=== PATIENT | female | born 1965 | race Caucasian/White ===

== ENCOUNTER → 2020-09-20 08:52 | Outpatient (BNVA) | payer OTHER, SELFPAY | PROVIDERS: PCP Nurse Practitioner Family; Referring Provider Nurse Practitioner Family; Visit Provider Physician Assistant | DX: Z76.89 Persons encountering health services in other specified circumstances (principal) ==

== ENCOUNTER 2021-06-28 13:53 | Outpatient (REF) | payer OTHER, SELFPAY | END 2021-06-28 13:54 | disposition home or self-care (01) | LOC: HO.LNP 13:53 | PROVIDERS: Visit Provider Internal Medicine | DX: Z20.822 Contact with and (suspected) exposure to COVID-19 (principal); J06.9 Acute upper respiratory infection, unspecified | CPT/HCPCS: U0003; U0005 ==

== ENCOUNTER 2023-08-23 11:11 | Outpatient (AMB) | payer OTHER, SELFPAY ==
--- NOTE | 2023-08-23 11:15 | AM.OFFWIN_ITS ---
Intake Vital Signs 08/23/23 11:24 Weight 99 lb BP 130/68 Blood Pressure Location Lt brachial Position Sitting Pulse 86 Pulse Source Pulse Oximeter Temp 97.6 F Temp Source Temporal Artery Scan Pulse Oximetry (%) 99 Oxygen Delivery Method Room Air Intake Visit Reasons: EP, sore throat, left leg pain (masked) Intake Note: pt is here for c/o sore throat and left leg pain over a week Patient Tobacco Use Status: Never used Tobacco Allergies cephalexin [From KEFLEX] Allergy (Severe, Verified 08/23/23 11:15) SWELLING Sulfa (Sulfonamide Antibiotics) Allergy (Mild, Verified 08/23/23 11:15) ANGIOEDEMA Do you need a note to return to daycare/school/sports/work: Yes HPI HPI Comments History of Present Illness Details This is a 58-year-old female with no stated past medical history who is a daily tobacco user presenting for evaluation of a sore throat and left leg pain. Patient states that she has had a sore throat mostly on the right side for the past 2 months. Patient states that she has difficulty swallowing however has been able to eat and drink fluids daily. Patient has been taking Aleve [id number] with minimal relief of her discomfort. She denies having any fevers, chills, ear pain, cough or shortness of breath. Patient also states that she no longer has a vehicle and therefore has been walking everywhere . Patient states that she tripped on a sidewalk approximately 1 week ago, did not fall to the ground however strained her left inguinal region. Patient describes her pain as an aching sensation that radiates to her left thigh. [facility] Medical History Anxiety Surgical History (Updated 09/20/20 @ 10:06 by Vy Mccarthy PA-C) Hx of appendectomy Family History (Updated 09/20/20 @ 10:09 by Vy Mccarthy PA-C) Father No problems noted. Mother No problems noted. 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 Review of Systems Const All systems reviewed & are unremarkable except as noted in HPI and below Denies chills, Denies fatigue, Denies fever(s), Denies night sweats, Denies weakness and Reports weight loss (15 lb weight loss over 3 months -- attributes to walking everywhere ) ENT Denies otalgia, Denies sinus pressure, Reports sore throat, Denies throat swelling and Denies tongue swelling Card Denies dyspnea Resp Denies cough and Denies dyspnea Musc Reports no additional complaints and Reports other (left inguinal pain radiating to left thigh) Neuro Denies weakness Psych Reports no additional complaints Endo Denies fatigue Aller/Immun Denies throat swelling and Denies tongue swelling Physical Exam Const General: cooperative Nutritional Appearance: underweight Orientation/consciousness: patient oriented x3 Limitations: no limitations HEENT Head: Yes normal to inspection Ears: hearing grossly normal bilaterally, external ears normal, TM's normal bilaterally and EAC's normal General nose exam: Normal external nose present Face and sinus: Yes normal facial exam and No sinus tenderness Mouth: Normal oral and palatal mucosa present, oropharynx normal and moist mucous membranes Throat: Yes posterior oropharynx normal Eyes Eyelids: Yes eyelids normal Conjunctivae: conjunctivae normal Sclerae: sclerae normal Neck Lymphatic: lymphadenopathy (right submandibular adenopathy) Skin General skin exam: no rashes or lesions noted Neuro General: patient oriented x3 Gait exam (Neuro): Ataxic gait present (favoring left leg) Extrem General: Yes normal to inspection Left lower extremity: normal to inspection, full ROM and hip/thigh Details: tenderness (left inguinal region; pain to direct palpation, no pain with palpation left thigh) Results Reviewed Results Reviewed: negative rapid strep Assessment & Plan Assessment & Plan (1) Pharyngitis: Code(s): J02.9 - Acute pharyngitis, unspecified Plan: Naprosyn BID x 7- 10 days; patient to follow-up with PCP if no relief for possible referral to ENT given her tobacco use coupled with her right cervical adenopathy and weight loss. Concerns are discussed with the patient. (2) Strain of left inguinal muscle: Code(s): S39.013A - Strain of muscle, fascia and tendon of pelvis, initial encounter Plan: Naprosyn BID x 7-10 days. Medications: New naproxen (Naprosyn) 500 mg PO BID 20 tabs 0RF Coding Level of Care Code Est Pt Level 4 (96647) Diagnoses Pharyngitis J02.9 Strain of left inguinal muscle S39.013A Time Spent (min) 25
[2023-08-23 11:24] VITALS: BP 130/68; PULSE 86; TEMP 36.4; O2SAT 99
== END 2023-08-23 11:55 | disposition home or self-care (01) ==
PROVIDERS: PCP Nurse Practitioner Family; Visit Provider Physician Assistant
DX: J02.9 Acute pharyngitis, unspecified (principal); S39.013A Strain of muscle, fascia and tendon of pelvis, initial encounter
CPT/HCPCS: 87880; 99214

== ENCOUNTER 2023-10-02 13:41 | Outpatient (REF) | payer MEDICAID, SELFPAY ==
[2023-10-07 17:27] LABS: C. Trachomatis RNA TMA, Throat NOT DETECTED; N. gonorrhoeae RNA TMA, Throat DETECTED
== END 2023-10-02 13:42 | disposition home or self-care (01) ==
LOC: HO.HHCLNP 13:41
PROVIDERS: Visit Provider Emergency Medicine
DX: J02.8 Acute pharyngitis due to other specified organisms (principal)
CPT/HCPCS: 87070; 87491; 87591

== ENCOUNTER 2023-10-09 09:07 | Outpatient (REF) | payer MEDICAID, SELFPAY ==
--- NOTE | ~2023-10-09 | XR_ITS ---
EXAMINATION: XR CHEST CLINICAL INFORMATION: Cough COMPARISON: Chest radiograph from 02/24/2014 TECHNIQUE: 2 views of the chest were obtained. FINDINGS: Hyperinflation of the bilateral lung buchanan. No pneumothorax. Trachea is midline. Cardiac mediastinal silhouette is not enlarged. No large pleural effusion. Degenerative changes of the thoracic spine. Soft tissues are unremarkable. XR/XR chest 2V IMPRESSION: No acute cardiopulmonary process.
== END 2023-10-09 09:08 | disposition home or self-care (01) ==
LOC: HO.HHCX 09:07
PROVIDERS: Visit Provider Emergency Medicine
DX: R05.3 Chronic cough (principal)
CPT/HCPCS: 71046

== ENCOUNTER 2023-10-09 09:36 | Outpatient (REF) | payer MEDICAID, SELFPAY ==
[2023-10-09 11:41] LABS: Estimated Average Glucose 120 mg/dL; Hemoglobin A1c % 5.8 % (<6.0)
[2023-10-09 12:05] LABS: Alanine Aminotransferase 33 U/L (0-31); Alkaline Phosphatase 71 U/L (39-117); Anion Gap 14 (12-20); Aspartate Amino Transferase 28 U/L (5-31); Bilirubin Total 0.3 mg/dL (0.0-1.0); Blood Urea Nitrogen 17 mg/dL (9-16); Calcium 9.4 mg/dL (8.4-10.2); Carbon Dioxide 26 mmol/L (22-29); Chloride 106 mmol/L (96-108); Estimated Glomerular Filt Rate > 60; Glucose Random 85 mg/dL (60-115); Potassium 4.1 mmol/L (3.3-5.1); Sodium 142 mmol/L (135-145); Total Protein 6.8 g/dL (6.5-8.0)
[2023-10-09 12:07] LABS: HBc Num1 0.12 S/CO (0.00-0.79); HBsAGNum1 0.32 S/CO (0.00-0.99); HIV AB/AG Nonreactive (Nonreactive); HIV Num 1 0.04 S/CO (0.00-0.99); Hepatitis B Core Antibody Nonreactive (Nonreactive); Hepatitis B Surface Antigen Negative (Negative); ~Hepatitis C Antibody Nonreactive (Nonreactive)
[2023-10-09 12:11] LABS: TSH reflex Free T4 1.27 uIU/mL (0.32-4.0); Vitamin B12 377 pg/mL (200-900)
[2023-10-11 08:44] LABS: RPR Rapid Plasma Reagin NON-REACTIVE (NON-REACTIVE)
== END 2023-10-09 09:37 | disposition home or self-care (01) ==
LOC: HO.HHCL 09:36
PROVIDERS: Visit Provider Emergency Medicine
DX: Z11.4 Encounter for screening for human immunodeficiency virus [HIV] (principal); R20.2 Paresthesia of skin; A54.5 Gonococcal pharyngitis; R73.03 Prediabetes
CPT/HCPCS: 36415; 71046; 80053; 82607; 83036; 84443; 86592; 86704; 86803; 87340; 87389

== ENCOUNTER 2023-10-13 18:25 | Emergency (ER) | payer MEDICAID, SELFPAY ==
--- NOTE | ~2023-10-13 | XR_ITS ---
EXAMINATION: XR CHEST CLINICAL INFORMATION: Rule out pneumonia. COMPARISON: 10/09/2023 TECHNIQUE: 2 views of the chest were obtained. FINDINGS: Normal symmetric lung volumes. No parenchymal consolidation. No pleural effusion. No pneumothorax. Cardiomediastinal silhouette and pulmonary vascularity are within normal limits. No acute osseous abnormalities. XR/XR chest 2V IMPRESSION: Clear lungs
[2023-10-13 18:31] VITALS: BP 106/32; PULSE 74; RESP 16; TEMP 35.8; O2SAT 97; BMI 18.0
--- NOTE | 2023-10-13 19:05 | ED.PSYCH ---
HPI - Psych General Chief Complaint: Psychiatric Symptoms Stated Complaint: Crisis Eval Time Seen by Provider: 10/13/23 18:54 Source: patient, RN notes reviewed and old records reviewed Mode of arrival: ambulatory History of Present Illness HPI Narrative: 58-year-old female with a past medical history of prediabetes, anxiety, presenting to the ED complaining of suicidal ideations with plan to jump into the river, increasing depression, decreased p.o. intake. Patient states she is homeless over the past 5 months, has been walking in the rain all day, has not eaten, and has no were to go/sleep tonight. Reports social ETOH use and marijuana use. Denies other illicit substances. Denies recent injury/fall or trauma, HI, nausea/vomiting, abdominal pain MD complaint: suicidal ideation and feels depressed Related Data Previous Rx's Medication Instructions Recorded naproxen 500 mg tablet (Naprosyn) 500 mg PO BID #20 tabs 08/23/23 Allergies Allergy/AdvReac Type Severity Reaction Status Date / Time cephalexin [From KEFLEX] Allergy Severe SWELLING Verified 10/13/23 18:30 Sulfa (Sulfonamide Allergy Mild ANGIOEDEMA Verified 10/13/23 18:30 Antibiotics) Review of Systems Review of Systems: Constitutional: No Fever, No Fatigue, No Malaise ENT/Mouth: No Ear Pain, No Nasal Congestion,No sore throat, No Rhinorrhea, No Swallowing Difficulty Eyes: No Eye Pain, No Swelling, No Redness, No Vision Changes Cardiovascular: No Chest Pain, No SOB, No Edema, No Palpitations Respiratory: No Cough, No Sputum, No Dyspnea Gastrointestinal: No Nausea, No Vomiting, No Diarrhea, No Constipation, No Abdominal pain Musculoskeletal: No joint pain, No Myalgias, No Joint Swelling Skin: No Skin Lesions, No rash Neuro: No Weakness, No Dizziness, No Headache Psych: No Anxiety/Panic, +Depression, +SI, No HI/AH/VH, +Social Issues Yes all other systems are reviewed and are negative Constitutional: Constitutional: Reports as per HPI [facility] Past Medical History Attestation statement: The following information was validated with the patient. Source: old records reviewed Medical History Anxiety Surgical History Hx of appendectomy Family History Family History Father No problems noted. Mother No problems noted. 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 Physical Exam Vital Signs: Vital Signs: Last Vital Signs Temp 96.4 F L 10/13/23 18:31 Pulse 74 10/13/23 18:31 Resp 16 10/13/23 18:31 BP 106/32 L 10/13/23 18:31 Pulse Ox 97 10/13/23 18:31 O2 Del Method Room Air 10/13/23 18:31 BMI result Body Mass Index 18.0 Const: General: cooperative, healthy appearing and no acute distress Orientation/consciousness: patient oriented x3 Limitations: no limitations HEENT: Head: Yes normal to inspection and Yes atraumatic Ears: hearing grossly normal bilaterally General nose exam: Normal external nose present Face and sinus: Yes normal facial exam Eyes: General: appearance normal, both eyes and all related structures EOM: EOMs intact bilaterally Neck: Neck: Yes normal visual inspection and Yes no meningeal signs Resp: Effort & Inspection: normal respiratory effort and no respiratory distress Cardio: Rate: regular rate GI: Inspection: Yes normal to inspection Skin: Rashes: no rashes Wounds: no wounds Neuro: General: patient oriented x3, gait normal, tone normal, no meningeal signs and CN's II-XI intact bilaterally Cranial nerves: Yes CN's II-XII intact bilaterally Gait exam (Neuro): Normal gait present Extrem: General: Yes normal to inspection Psych: Attitude: cooperative Thought content: Suicidality present, no homicidality and Depressive thoughts present Course Course Course Narrative: -reassuring. Tox screen positive for THC. COVID negative -physician observation initiated at 22:30 as patient needs more time to be evaluated by CARE team -0200--ED care transferred to Dr. Uribe pending CARE eval Medical Decision Making Medical Decision Making MDM Narrative: 58-year-old female with a past medical history of prediabetes, anxiety, presenting to the ED complaining of suicidal ideations with plan to jump into the river, increasing depression, decreased p.o. intake. On exam vital signs stable, NAD, nontoxic appearing, sad/depressed, + SI. No evidence of trauma. Concern for suicidal ideation secondary to homelessness. But substance abuse. Lower suspicion for organic causes plan: Labs, tox screen, CARE consult Please refer to course for remaining clinical decision making, interpretation of labs/imaging results, and discussions with consultants and/or family members. Differential Diagnosis Differential Diagnoses: The differential diagnosis associated with the presentation includes As above Admission/Observation Consideration of admission/observation: Escalation of care including admission/observation considered Consult Healthcare Provider Management of the patient was discussed with: Behavioral Health Provider Lab Data [facility] Lab Attestation statement: I reviewed the patient's lab results. 10/13/23 19:27 10/13/23 19:27 Labs: Lab Results 10/13/23 10/13/23 Range/Units 19:27 20:22 WBC 11.4 H (4.8-10.8) X10*3/uL RBC 4.00 L (4.20-5.50) X10*6/uL Hgb 11.8 L (12.0-16.0) g/dl Hct 37.0 (37.0-47.0) % MCV 92.5 (80.0-98.0) fL MCH 29.5 (27.0-33.0) pg MCHC 31.9 (31.0-35.0) g/dl RDW 14.0 (11.0-16.0) % Plt Count 224 (160-400) X10*3/uL MPV 10.6 (9.4-12.3) fL Immature Gran % (Auto) 0.3 (0.0-0.4) % Neut % (Auto) 76.0 H (45-73) % Lymph % (Auto) 16.3 L (20-40) % [place] % (Auto) 6.0 (2-11) % Eos % (Auto) 1.0 (0-4) % Baso % (Auto) 0.4 (0-2) % Lymph # (Auto) 1.9 (1.2-4.9) X10*3/uL [place] # (Auto) 0.7 (0.1-1.2) X10*3/uL Eos # (Auto) 0.1 (0.0-0.4) X10*3/uL Baso # (Auto) 0.1 (0.0-0.2) X10*3/uL Abs Immat Gran (auto) 0.03 (0.00-0.03) X10*3/uL Absolute Neuts (auto) 8.7 H (2.0-8.3) x10*3/uL Absolute Nucleated RBC 0.000 (0.0-0.012) X10*3/uL Nucleated RBC % (auto) 0.0 (0.0-0.2) /100WBC Sodium 144 (135-145) mmol/L Potassium 3.9 (3.3-5.1) mmol/L Chloride 108 (96-108) mmol/L Carbon Dioxide 27 (22-29) mmol/L Anion Gap 13 (12-20) BUN 16 (9-16) mg/dL Creatinine 0.76 (0.5-1.4) mg/dL Estim Creat Clear Calc 59.4 Estimated GFR > 60 Random Glucose 102 (60-115) mg/dL Calcium 9.3 (8.4-10.2) mg/dL Magnesium 2.2 (1.6-2.6) mg/dL Total Bilirubin 0.2 (0.0-1.0) mg/dL Direct Bilirubin < 0.2 (0.0-0.5) mg/dL AST 29 (5-31) U/L ALT 30 (0-31) U/L Alkaline Phosphatase 73 (39-117) U/L Total Protein 6.4 L (6.5-8.0) g/dL Albumin 3.8 (3.5-5.0) g/dL Urine Color Yellow Urine Appearance Clear Urine pH 5.5 (5.0-9.0) Ur Specific [place] 1.015 (1.005-1.025) Urine Protein Negative (Neg-Trace) mg/dL Urine Glucose (UA) Negative (Negative) mg/dL Urine Ketones Negative (Negative) mg/dL Urine Blood Negative (Negative) Urine Nitrite Negative (Negative) Ur Leukocyte Esterase Trace H (Negative) Urine RBC 0-2 (0-2) /HPF Urine WBC 0-5 (0-5) /HPF Ur Squamous Epith Cells 6-10 (0-2) /HPF Urine Bacteria Trace (None Seen) Hyaline Casts 0-2 (0-2) /LPF Urine Opiates Screen Not Detected (Not Detect) Urine Fentanyl Screen Not Detected (Not Detect) Ur Barbiturates Screen Not Detected (Not Detect) Ur Phencyclidine Scrn Not Detected (Not Detect) Ur Amphetamines Screen Not Detected (Not Detect) U Benzodiazepines Scrn Not Detected (Not Detect) Urine Cocaine Screen Not Detected (Not Detect) U Marijuana (THC) Screen POSITIVE H (Not Detect) COVID-19 (KENJI) Negative (Negative) COVID-19 Clin Com See Note External Record Review External record reviewed: Inpatient record, Office record, Outpatient record, Prior outpatient labs, Prior outpatient radiology, Primary care record and Outside ED record Tests considered The following testing was considered but not selected: As above Social Determinants Patient?s care significantly limited by Social Determinants of Health including: Inadequate housing, Low income, Problems related to primary support group, Unemployment and Other Social Determinant of Health Discharge Plan Discharge Clinical Impression: Suicidal ideations, Homelessness Patient Disposition: Still a Patient Prescriptions: No Action naproxen [Naprosyn] 500 mg tablet 500 mg PO BID Qty: 20 0RF Interventions: [place]-Suicide Risk Severity Scale Last Done: 10/13/23 18:44
--- NOTE | 2023-10-13 19:20 | PC.NURSE ---
patien t appears to remain at rest at present, respirations are even and unlabored patient appears in no distress.
[2023-10-13 19:34] LABS: MANUAL DIFF FLAG NO
[2023-10-13 19:39] LABS: Basophils Absolute Auto 0.1 X10*3/uL (0.0-0.2); Basophils Percent Auto 0.4 % (0-2); Eosinophils Absolute Auto 0.1 X10*3/uL (0.0-0.4); Hemoglobin 11.8 g/dl (12.0-16.0); Imm Gran Abs Auto 0.03 X10*3/uL (0.00-0.03); Imm Gran Pct Auto 0.3 % (0.0-0.4); Lymphocytes Absolute Auto 1.9 X10*3/uL (1.2-4.9); Lymphocytes Percent Auto 16.3 % (20-40); Mean Corpuscular HGB Conc 31.9 g/dl (31.0-35.0); Mean Corpuscular Hemoglobin 29.5 pg (27.0-33.0); Mean Corpuscular Volume 92.5 fL (80.0-98.0); Mean Platelet Volume 10.6 fL (9.4-12.3); Monocytes Absolute Auto 0.7 X10*3/uL (0.1-1.2); Neutrophils Absolute Auto 8.7 x10*3/uL (2.0-8.3); Platelet Count 224 X10*3/uL (160-400); White Blood Count 11.4 X10*3/uL (4.8-10.8)
[2023-10-13 19:50] LABS: COVID-19 Test Negative (Negative); IDNOW Serial# BCCEAD1C
[2023-10-13 19:55] LABS: Alanine Aminotransferase 30 U/L (0-31); Albumin Level 3.8 g/dL (3.5-5.0); Alkaline Phosphatase 73 U/L (39-117); Anion Gap 13 (12-20); Aspartate Amino Transferase 29 U/L (5-31); Bilirubin Direct < 0.2 mg/dL (0.0-0.5); Bilirubin Total 0.2 mg/dL (0.0-1.0); Blood Urea Nitrogen 16 mg/dL (9-16); Calcium 9.3 mg/dL (8.4-10.2); Carbon Dioxide 27 mmol/L (22-29); Chloride 108 mmol/L (96-108); Creatinine Clr Calc Pharmacy 59.4; Estimated Glomerular Filt Rate > 60; Glucose Random 102 mg/dL (60-115); Magnesium 2.2 mg/dL (1.6-2.6); Potassium 3.9 mmol/L (3.3-5.1); Sodium 144 mmol/L (135-145); Total Protein 6.4 g/dL (6.5-8.0)
[2023-10-13 20:37] LABS: Appearance Urine Clear; Color Urine Yellow; Glucose Urine UA Negative (Negative); Leukocyte Esterase Urine Trace (Negative); Nitrite Urine Negative (Negative); PH 5.5 (5.0-9.0); Specific Gravity - Urine 1.015 (1.005-1.025); UMIC TRIGGER UACC YES; Urine Blood Negative (Negative); Urine Ketones Negative (Negative); Urine Protein Negative (Neg-Trace)
[2023-10-13 20:42] LABS: Amphetamine Screen Urine Not Detected (Not Detect); Bacteria Urine Trace (None Seen); Barbiturates, Urine Not Detected (Not Detect); Benzodiazepines Screen Urine Not Detected (Not Detect); Cannabinoid Screen Urine POSITIVE (Not Detect); Cocaine Screen Urine Not Detected (Not Detect); Fentanyl, urine Not Detected (Not Detect); Hyaline Casts Urine 0-2 /LPF (0-2); Opiate Screen Urine Not Detected (Not Detect); Phencyclidine Screen Urine Not Detected (Not Detect); RBC Urine 0-2 /HPF (0-2); WBC Urine 0-5 /HPF (0-5)
--- NOTE | 2023-10-14 01:40 | PC.NURSE ---
patient awoke at least 2 times in the night seeming to possibly have nightmares.
[2023-10-14 02:24] VITALS: BP 127/68; PULSE 83; RESP 15; TEMP 36.9; O2SAT 96
[2023-10-14] MEDS: Ibuprofen 400 MG TABLET PO (03:03)
[2023-10-14 04:12] LABS: Influenza A PCR NEGATIVE (Negative); Influenza B PCR NEGATIVE (Negative); Resp Syncy Virus RNA Qual PCR NEGATIVE (Negative); SARS COV2 PCR INHOUSE NEGATIVE (Negative)
--- NOTE | 2023-10-14 10:30 | MHC.CARE ---
[employer] arrived in POD with security, and a family member with an active Sec 35. Patient had not been seen yet by CARE team to clear for SI. Provider had been made aware of PD on unit by this speech writer and discharge orders would have to be placed. Patient was transported to [facility] on the Section 35.
--- NOTE | 2023-10-14 10:33 | PC.NURSE ---
Police arrived to get Crystal on a Section 35 warrant her family petitioned the court for. Family arrived with Crystal and offered to bring her belongings with them. Crystal refused and stated Do not let them touch my things . Crystal was told we could hold on to her belongings briefly but that if she was sentenced to a program through the court for 30-90 days we could not hold her things for that long. Crystal stated she will be sending someone to get her things In a day or two .
== END 2023-10-14 10:39 ==
PROVIDERS: Emergency Medicine; Physician Assistant; Emergency Provider Emergency Medicine
DX: R45.851 Suicidal ideations (principal); F32.A Depression, unspecified; F41.9 Anxiety disorder, unspecified; R73.03 Prediabetes; Z59.00 Homelessness unspecified; Z20.822 Contact with and (suspected) exposure to COVID-19; Z20.828 Contact with and (suspected) exposure to other viral communicable diseases
CPT/HCPCS: 0241U; 71046; 80048; 80076; 80307; 81001; 83735; 85025; 87635; 99285

== ENCOUNTER 2023-10-14 12:52 | Inpatient (IN) | payer OTHER, MEDICAID, SELFPAY ==
[2023-10-14 13:02] VITALS: BP 124/78; PULSE 74; RESP 16; TEMP 36.5; O2SAT 98; BMI 18.3
[2023-10-14 15:43] VITALS: RESP 18
--- NOTE | 2023-10-14 15:45 | PC.NURSE ---
Crystal was discharged this morning on a section [address] She was returned on a section 12. Disorganized and difficult to redirect at times. Crystal denies SI/HI/AVH. States this is all because of my family who hate me . 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
--- NOTE | 2023-10-14 16:51 | ED.PSYCH ---
HPI - Psych General Chief Complaint: Psychiatric Symptoms Stated Complaint: SEC [address] HOUSE PER EMS Time Seen by Provider: 10/14/23 16:03 Source: patient and old records reviewed Mode of arrival: EMS Limitations: no limitations History of Present Illness HPI Narrative: Patient is a 58-year-old male who presents to the Emergency Department on a Section 12 from the [facility]. She presented there today after being discharged from this emergency department earlier this morning in police custody for a Section 35 hearing. Patient's family reports that patient has a history of drug usage, they believed her most recent behaviors to be secondary to drug usage. Although of note, her toxicology which was obtained from her visit yesterday was only positive for marijuana otherwise negative. Yesterday, the patient did present to the ED reporting suicidal ideations with a plan to jump in the river due to her increasing depression. Per the Section 12 today, family reported that she believes people are trying to kill her, she recently barricaded her elderly mom in a hotel room, reportedly they are currently residing there as their home is unsafe to live in. She presents with rapid speech. It is difficult to obtain a clear history from patient at this time. She endorses suicidal ideations but does not provide any specific details. Related Data Home Medications Medication Instructions Recorded Confirmed No Known Home Meds 10/14/23 10/14/23 Allergies Allergy/AdvReac Type Severity Reaction Status Date / Time cephalexin [From KEFLEX] Allergy Severe SWELLING Verified 10/13/23 18:30 Sulfa (Sulfonamide Allergy Mild ANGIOEDEMA Verified 10/13/23 18:30 Antibiotics) Review of Systems Review of Systems: Yes all other systems are reviewed and are negative PMFSH Past Medical History Attestation statement: The following information was validated with the patient. Source: old records reviewed Medical History Anxiety Surgical History Hx of appendectomy Family History Family History Father No problems noted. Mother No problems noted. 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 No acute distress.?Normal affect. Eyes: Pupils equal, round and reactive to light.? ENT: Pharynx normal.?? Neck: Normal inspection.? Neck supple.?? CVS: Heart sounds normal. Normal heart rate and rhythm.? Pulses normal.?? Respiratory: No respiratory distress.? Lung sounds clear to auscultation bilaterally?? Abdomen: Soft and non-tender. Normoactive bowel sounds. Skin: Skin warm and dry.? Normal skin color.? Extremities: No lower extremity edema.? Neuro: Moves all extremities spontaneously. Sensation intact bilaterally. No focal neuro deficits. Ambulates with normal steady gait. Course Reevaluation(s) Reevaluation #1: Patient was evaluated by care team, she is a Section 12 inpatient bed search. Medications Administered Discontinued Medications Generic Name Dose Route Start Last Admin Trade Name Freq PRN Reason Stop Dose Admin Naproxen 500 mg 10/14/23 20:36 10/14/23 20:45 Naproxen 500 Mg Tablet PO 10/14/23 20:37 500 mg ONCE ONE Administration Medical Decision Making Medical Decision Making MDM Narrative: Patient is a 58-year-old female who presents emergency department on a Section 12. As mentioned in HPI, she was initially seen in the emergency department yesterday and discharged this morning in police custody for a Section 35 hearing. She had not yet had a care team evaluation, she appears disorganized in her thinking, has rapid speech, concern for decompensation. At this time I do feel as though she requires care team evaluation, she will be placed in physician observation at this time 17:00 to the evaluation may ensue. She is in no apparent respiratory distress. Vital signs are stable. Differential Diagnosis Differential Diagnoses: The differential diagnosis associated with the presentation includes (not consistent substance abuse, low suspicion for organic causes, disorganized thought process.) Admission/Observation Consideration of admission/observation: Escalation of care including admission/observation considered (See narrative above.) Consult Healthcare Provider Management of the patient was discussed with: Behavioral Health Provider Lab Data Reviewed serum labs obtained yesterday, very reassuring. Independent Historian Clinical information obtained from an independent historian. History obtained from or confirmed by: EMS External Record Review External record reviewed: Other (Section 12) Discharge Plan Discharge Clinical Impression: Suicidal ideation, Depression Patient Disposition: Still a Patient Prescriptions: No Action No Known Home Meds Interventions: [place]-Suicide Risk Severity Scale Last Done: 10/14/23 23:18
--- NOTE | 2023-10-14 19:09 | PC.NURSE ---
its only the rich and famous that watch us patient mildly intrusive, pressured, talking to a peer intrusiuve patient patient appears in no acute distress
[2023-10-14] MEDS: NaPROXEN 500 MG TABLET PO (20:45)
--- NOTE | 2023-10-14 23:51 | PC.NURSE ---
t/w trying to encourage client to head to her own room, client asks for snacks very frequesntly (probably was given 4-5 sandwiches and asst snacks after dinner) arond 11pm t/w advised staff to try and encourage sleep with the paitnet and to adjourn to her room eventually, client becamse increasingly contrary and refused to adjourn to her assigned room.
--- NOTE | 2023-10-15 | ECG_ITS ---
Test Reason : qt interval Blood Pressure : / mmHG Vent. Rate : 060 BPM Atrial Rate : 060 BPM P-R Int : 138 ms QRS Dur : 072 ms QT Int : 392 ms P-R-T Axes : 080 066 069 degrees QTc Int : 392 ms Normal sinus rhythm Possible Left atrial enlargement Septal infarct (cited on or before 17-JAN-2004) Abnormal ECG When compared with ECG of 17-JAN-2004 07:02, No significant change was found Referred By: Charles Sanderson Electronically Signed By:YESSENIA KIMBALL MD
--- NOTE | 2023-10-15 03:42 | PC.NURSE ---
patient now appears asleep in common area
--- NOTE | 2023-10-15 04:41 | PC.NURSE ---
patient continues to refuse to follow directions, antagonistic towards staff regarding redirection (brushing teeth immediately in front of nurses station and occupying common area despite redirection.
--- NOTE | 2023-10-15 04:41 | MHC.EDTECH ---
Patient asked for and received a toothbrush and toothpaste. She started to brush her teeth at the nurses station and was asked to stop and go to the bathroom to brush her teeth. Patient did not comply and continued to walk around the common area brushing her teeth. She was redirected to the bathroom.
--- NOTE | 2023-10-15 04:43 | PC.NURSE ---
patient addresses client with derisive antagonistic attitude.
[2023-10-15 08:20] LABS: COVID-19 Test Negative (Negative); IDNOW Serial# BCCEAD1C
[2023-10-15 09:21] VITALS: BP 155/73; PULSE 88; TEMP 36.6
--- NOTE | 2023-10-15 11:42 | PC.NURSE ---
per pt request rn spoke w care [employer] team member as pt wants update- [facility] care team stated staff will talk w her soon
--- NOTE | 2023-10-15 12:18 | PC.NURSE ---
spoke w erich and she is going to speak w inpatient provider to establish inpatient orders then call back for probable admission w bed
--- NOTE | 2023-10-15 12:52 | PC.NURSE ---
eating food in common room well. karol jansen.
--- NOTE | 2023-10-15 13:14 | PC.NURSE ---
tech drawing blood
[2023-10-15 13:22] LABS: MANUAL DIFF FLAG NO
[2023-10-15 13:24] LABS: Basophils Absolute Auto 0.1 X10*3/uL (0.0-0.2); Basophils Percent Auto 0.6 % (0-2); Eosinophils Absolute Auto 0.2 X10*3/uL (0.0-0.4); Eosinophils Percent Auto 1.6 % (0-4); Hematocrit 40.7 % (37.0-47.0); Imm Gran Abs Auto 0.03 X10*3/uL (0.00-0.03); Imm Gran Pct Auto 0.3 % (0.0-0.4); Lymphocytes Absolute Auto 2.1 X10*3/uL (1.2-4.9); Lymphocytes Percent Auto 21.4 % (20-40); Mean Corpuscular HGB Conc 31.9 g/dl (31.0-35.0); Mean Corpuscular Hemoglobin 29.9 pg (27.0-33.0); Mean Corpuscular Volume 93.6 fL (80.0-98.0); Mean Platelet Volume 10.5 fL (9.4-12.3); Monocytes Absolute Auto 0.6 X10*3/uL (0.1-1.2); Monocytes Percent Auto 5.8 % (2-11); Neutrophils Percent Auto 70.3 % (45-73); Platelet Count 192 X10*3/uL (160-400); Red Blood Count 4.35 X10*6/uL (4.20-5.50)
[2023-10-15 13:40] LABS: Alanine Aminotransferase 30 U/L (0-31); Albumin Level 4.1 g/dL (3.5-5.0); Alkaline Phosphatase 77 U/L (39-117); Anion Gap 13 (12-20); Aspartate Amino Transferase 24 U/L (5-31); Bilirubin Total 0.3 mg/dL (0.0-1.0); Blood Urea Nitrogen 18 mg/dL (9-16); Carbon Dioxide 27 mmol/L (22-29); Chloride 105 mmol/L (96-108); Estimated Glomerular Filt Rate > 60; Glucose Random 153 mg/dL (60-115); Potassium 4.5 mmol/L (3.3-5.1); Sodium 140 mmol/L (135-145); Total Protein 6.9 g/dL (6.5-8.0)
--- NOTE | 2023-10-15 14:15 | PC.NURSE ---
pt ate lunch and snack. in common room watching tv and made phone call. calm, coop. no distress.
[2023-10-15 14:18] LABS: Appearance Urine Clear; Color Urine Yellow; Glucose Urine UA Negative (Negative); Leukocyte Esterase Urine Negative (Negative); Nitrite Urine Negative (Negative); PH 5.5 (5.0-9.0); Specific Gravity - Urine 1.015 (1.005-1.025); Urine Blood Negative (Negative); Urine Ketones Negative (Negative); Urine Protein Negative (Neg-Trace)
[2023-10-15 14:21] LABS: Bacteria Urine None Seen (None Seen); Hyaline Casts Urine 0-2 /LPF (0-2); RBC Urine 0-2 /HPF (0-2); Squamous Epithelial Cell Urine 0-2 /HPF (0-2); WBC Urine 0-5 /HPF (0-5)
[2023-10-15 14:27] LABS: Amphetamine Screen Urine Not Detected (Not Detect); Barbiturates, Urine Not Detected (Not Detect); Benzodiazepines Screen Urine Not Detected (Not Detect); Cannabinoid Screen Urine POSITIVE (Not Detect); Cocaine Screen Urine Not Detected (Not Detect); Fentanyl, urine Not Detected (Not Detect); Opiate Screen Urine Not Detected (Not Detect); Phencyclidine Screen Urine Not Detected (Not Detect)
[2023-10-15 16:20] VITALS: BP 132/61; PULSE 74; RESP 16; TEMP 36.9; O2SAT 97
[2023-10-15 17:52] VITALS: BMI 18.0
[2023-10-15] MEDS: NaPROXEN 500 MG TABLET PO (21:13)
[2023-10-15] MEDS: Nicotine Polacrilex 2 MG GUM 4 MG BUCCAL (21:13)
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
[2023-10-16 08:16] VITALS: BP 105/62; PULSE 65; RESP 18; TEMP 36.2; O2SAT 98
[2023-10-16] MEDS: NaPROXEN 500 MG TABLET PO ×2 (08:38→21:02)
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
[2023-10-16 18:00] VITALS: BP 134/74; PULSE 87; TEMP 36.6; O2SAT 99
[2023-10-16] MEDS: hydrOXYzine HCL 25 MG TABLET PO (21:04)
[2023-10-17 08:30] VITALS: BP 128/76; PULSE 66; RESP 16; TEMP 36.4; O2SAT 99
--- NOTE | 2023-10-17 15:07 | P.PNPSI_ITS ---
Subjective Subjective Date of Service: 10/17/23 Reason For Visit: Depression/SI Subjective Notes: Conditional Voluntary Healthcare Proxy: No Guardianship: No Medical Problems Affecting Mental Status: No Interim History: Pt talking of discharge. Refuses medications Reports she has NEVER been suicidal Thinking of asking her friend Saqib or daughter to stay with them Restraining order served for mother pt reports Hyperverbal, intermittent agitation and tangential. Medication Compliance: No Side effects from medications: No Attending Groups: No Review of Systems Acute medical concerns: No Medical Review of Systems: unchanged Review of Systems Review of Systems Yes all other systems are reviewed and are negative (pt denies and will not discuss) Mental Status Exam Mental Status Exam Patient Appearance: Fatigued Patient Orientation: Person, Place, Time and Situation Level of Consciousness: Alert Patient Behavior: Talkative, Fearful, Resistive to Care and Distractible Mood Description: Labile and Sad Affect Description: Labile and Sad Patient Cognition Impaired: No Ability to Follow Directions: Good Speech Pattern: Spontaneous Speech Memory Description: Episodic Impaired Hallucinations: None Delusions: Paranoid Ideation Perceptual Disturbances: Depersonalization and Derealization Thought Process: Distracted and Rumination Thought Content: positive for Flight of Ideas, positive for Racing, positive for [place], positive for Circumstantial, positive for Perseveration, positive for Preoccupation, positive for Loose Associations, positive for Tangential, positive for Suicidal Ideation (denies) and positive for Homicidal Ideation (denies) Depressive Symptoms: Insomnia (I really don't need sleep), Difficulty Sleeping, Crying Spells, Hopelessness, Unhappiness, Increased Fatigue, Thoughts of /Suicide (denies), Low Self Esteem and Difficulty Concentrating Abnormal Motor Activity Signs and Symptoms: Restlessness Judgement: Poor Diagnostics Vital Signs (24Hr): Vital Signs - 24 hr 10/16/23 18:00 10/17/23 08:30 Temperature 97.9 F 97.6 F Pulse Rate 87 66 Respiratory Rate 16 Blood Pressure 134/74 128/76 Pulse Oximetry 99 99 Oxygen Delivery Method Room Air Room Air BMI result Body Mass Index 18.0 Labs 10/15/23 13:17 10/15/23 13:17 Medications Medications Current Medications Acetaminophen (Acetaminophen 325 Mg Tablet) 650 mg PO Q6H PRN PRN Reason: Headache/Pain Mild Scale (1-3) Al Hydroxide/Mg Hydroxide (Magnesium Hydrox/Alum Hydrox 30 Ml Oral.Susp) 30 ml PO Q6H PRN PRN Reason: Heartburn/Nausea Magnesium Hydroxide (Milk Of Magnesia 30 Ml Oral.Susp) 30 ml PO DAILY PRN PRN Reason: Constipation Naproxen (Naproxen 500 Mg Tablet) 500 mg PO BID AMADA Last Admin: 10/17/23 08:36 Dose: Not Given Nicotine (Nicotine 21 Mg Patch.Td24) 21 mg TRANSDERMA DAILY PRN PRN Reason: smoking cessation Nicotine Polacrilex (Nicotine Polacrilex 2 Mg Gum) 4 mg BUCCAL Q2H PRN PRN Reason: Nicotine Cravings Last Admin: 10/15/23 21:13 Dose: 4 mg Olanzapine (Olanzapine 5 Mg Tablet) 5 mg PO TID PRN PRN Reason: agitation Allergies Allergies Allergy/AdvReac Type Severity Reaction Status Date / Time cephalexin [From KEFLEX] Allergy Severe SWELLING Verified 10/13/23 18:30 Sulfa (Sulfonamide Allergy Mild ANGIOEDEMA Verified 10/13/23 18:30 Antibiotics) Assessment & Plan Assessment & Plan (1) PTSD (post-traumatic stress disorder): Status: Acute Code(s): F43.10 - Post-traumatic stress disorder, unspecified (2) Bipolar disorder: Status: Acute Code(s): F31.9 - Bipolar disorder, unspecified (3) Polysubstance use disorder: Status: Acute Code(s): F19.90 - Other psychoactive substance use, unspecified, uncomplicated Plan 58 yo female, hx of PTSD, bipolar disorder, ?substance use-cannabis, other use reported with legal hx but not confirmed. Pt sent from the court from a Section 35 on Section 12. Pt declines prescribed psychotropic medications at this time, asks for endocrine eval. Today presenting with some hypomania, active PTSD sx. Plan: CV 15 minute checks Collateral contact Diagnostics Family has restraining orders against pt. [place] building and encouragement of appropriate interventions to manage sx. 10/17/23- Encourage treatment. Pt considering wanting to leave. Declined three day notice signing. Thinking of asking her friend Saqib or her daughter if she can live with them. Patient educated on: medication risk/benefits and therapeutic strategies Informed Consent: understands and further education needed Reason for continued inpatient stay Substantial Risk for: rapid decompensation Time Spent With Patient Time: Total time managing care of this patient today ____ minutes.
[2023-10-17 18:00] VITALS: BP 124/68; PULSE 88; TEMP 36.5; O2SAT 99
[2023-10-18 08:52] VITALS: BP 123/60; PULSE 85; TEMP 36.3; O2SAT 98
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
[2023-10-18 17:42] VITALS: BP 149/89; PULSE 77; RESP 18; TEMP 36.2; O2SAT 99
[2023-10-18] MEDS: NaPROXEN 500 MG TABLET PO (18:47)
[2023-10-18] MEDS: OLANZapine 5 MG TABLET PO (22:22)
[2023-10-19 08:46] VITALS: BP 138/74; PULSE 90; RESP 16; TEMP 36.7; O2SAT 96
[2023-10-19] MEDS: NaPROXEN 500 MG TABLET PO ×2 (08:49→21:18)
--- NOTE | 2023-10-19 10:37 | P.PNPSI_ITS ---
Subjective Subjective Date of Service: 10/19/23 Reason For Visit: Depression/SI Subjective Notes: Conditional Voluntary Healthcare Proxy: No Guardianship: No Medical Problems Affecting Mental Status: No Interim History: Patient was not willing to consider taking medication or look at diagnosis. Has not been physically aggressive can be anxious and intrusive on the unit Medication Compliance: No Side effects from medications: No Attending Groups: No Review of Systems Acute medical concerns: No Medical Review of Systems: unchanged Mental Status Exam Mental Status Exam Narrative: Patient was approached was somewhat challenging in irritable would not engage with this keno writer in a meaningful way. Became agitated why was my name on her chart had a quite intense affect went very close to this keno writer in a somewhat challenging manner that refused to engage in any form of clinical discussion. Did try to engage and discuss with patient who I was what my role was Diagnostics Vital Signs (24Hr): Vital Signs - 24 hr 10/18/23 17:42 10/19/23 08:46 Temperature 97.2 F 98.0 F Pulse Rate 77 90 Respiratory Rate 18 16 Blood Pressure 149/89 H 138/74 Pulse Oximetry 99 96 Oxygen Delivery Method Room Air Room Air BMI result Body Mass Index 18.0 Labs 10/15/23 13:17 10/15/23 13:17 Medications Medications Current Medications Acetaminophen (Acetaminophen 325 Mg Tablet) 650 mg PO Q6H PRN PRN Reason: Headache/Pain Mild Scale (1-3) Al Hydroxide/Mg Hydroxide (Magnesium Hydrox/Alum Hydrox 30 Ml Oral.Susp) 30 ml PO Q6H PRN PRN Reason: Heartburn/Nausea Magnesium Hydroxide (Milk Of Magnesia 30 Ml Oral.Susp) 30 ml PO DAILY PRN PRN Reason: Constipation Naproxen (Naproxen 500 Mg Tablet) 500 mg PO BID [facility] Last Admin: 10/19/23 08:49 Dose: 500 mg Nicotine (Nicotine 21 Mg Patch.Td24) 21 mg TRANSDERMA DAILY PRN PRN Reason: smoking cessation Nicotine Polacrilex (Nicotine Polacrilex 2 Mg Gum) 4 mg BUCCAL Q2H PRN PRN Reason: Nicotine Cravings Last Admin: 10/15/23 21:13 Dose: 4 mg Olanzapine (Olanzapine 5 Mg Tablet) 5 mg PO TID PRN PRN Reason: agitation Olanzapine (Olanzapine 5 Mg Tablet) 5 mg PO BEDTIME [facility] Last Admin: 10/18/23 22:22 Dose: 5 mg Allergies Allergies Allergy/AdvReac Type Severity Reaction Status Date / Time cephalexin [From KEFLEX] Allergy Severe SWELLING Verified 10/13/23 18:30 Sulfa (Sulfonamide Allergy Mild ANGIOEDEMA Verified 10/13/23 18:30 Antibiotics) haldol AdvReac Unknown Unknown Uncoded 10/18/23 17:58 Assessment & Plan Assessment & Plan (1) PTSD (post-traumatic stress disorder): Status: Acute Code(s): F43.10 - Post-traumatic stress disorder, unspecified (2) Bipolar disorder: Status: Acute Code(s): F31.9 - Bipolar disorder, unspecified (3) Polysubstance use disorder: Status: Acute Code(s): F19.90 - Other psychoactive substance use, unspecified, uncomplicated Plan 58 yo female, hx of PTSD, bipolar disorder, ?substance use-cannabis, other use reported with legal hx but not confirmed. Pt sent from the court from a Section 35 on [address] [place]. Pt declines prescribed psychotropic medications at this time, asks for endocrine eval. Today presenting with some hypomania, active PTSD sx. Plan: CV 15 minute checks Collateral contact Diagnostics Family has restraining orders against pt. [place] building and encouragement of appropriate interventions to manage sx. 10/18- Encouarged treatment. 10/19 Patient not willing to consider any form of medication treatment irritable reactive somewhat pressured continue to try to engage in treatment Informed Consent: further education needed Reason for continued inpatient stay Substantial Risk for: rapid decompensation Time Spent With Patient Time: Total time managing care of this patient today ____ minutes.
[2023-10-19 18:25] VITALS: BP 118/60; PULSE 86; RESP 16; TEMP 36.4; O2SAT 98
[2023-10-19] MEDS: OLANZapine 5 MG TABLET PO (21:18)
[2023-10-20] MEDS: Acetaminophen 325 MG TABLET 650 MG PO (06:03)
[2023-10-20] MEDS: NaPROXEN 500 MG TABLET PO ×2 (08:35→20:15)
--- NOTE | 2023-10-20 16:09 | HO.PSYCHPN ---
Subjective Subjective Date of Service: 10/20/23 Reason For Visit: Depression/SI Subjective Notes: Conditional Voluntary Healthcare Proxy: No Guardianship: No Medical Problems Affecting Mental Status: No Interim History: Patient is somewhat bizarre stating she thinks the pictures on the wound belcher are real plan that people have been stealing them would not engage with this medical writer would not talk about treatment delusional bizarre Medication Compliance: No Side effects from medications: No Attending Groups: No Review of Systems Acute medical concerns: No Medical Review of Systems: unchanged Mental Status Exam Mental Status Exam Narrative: Patient would not engage with this medical writer somewhat agitated bizarre paranoid delusions racing thoughts agitated marked lack of insight Diagnostics Vital Signs (24Hr): Vital Signs - 24 hr 10/19/23 18:25 Temperature 97.6 F Pulse Rate 86 Respiratory Rate 16 Blood Pressure 118/60 Pulse Oximetry 98 Oxygen Delivery Method Room Air BMI result Body Mass Index 18.0 Labs 10/15/23 13:17 10/15/23 13:17 Medications Medications Current Medications Acetaminophen (Acetaminophen 325 Mg Tablet) 650 mg PO Q6H PRN PRN Reason: Headache/Pain Mild Scale (1-3) Last Admin: 10/20/23 06:03 Dose: 650 mg Al Hydroxide/Mg Hydroxide (Magnesium Hydrox/Alum Hydrox 30 Ml Oral.Susp) 30 ml PO Q6H PRN PRN Reason: Heartburn/Nausea Magnesium Hydroxide (Milk Of Magnesia 30 Ml Oral.Susp) 30 ml PO DAILY PRN PRN Reason: Constipation Naproxen (Naproxen 500 Mg Tablet) 500 mg PO BID [facility] Last Admin: 10/20/23 08:35 Dose: 500 mg Nicotine (Nicotine 21 Mg Patch.Td24) 21 mg TRANSDERMA DAILY PRN PRN Reason: smoking cessation Nicotine Polacrilex (Nicotine Polacrilex 2 Mg Gum) 4 mg BUCCAL Q2H PRN PRN Reason: Nicotine Cravings Last Admin: 10/15/23 21:13 Dose: 4 mg Olanzapine (Olanzapine 5 Mg Tablet) 5 mg PO TID PRN PRN Reason: agitation Olanzapine (Olanzapine 5 Mg Tablet) 5 mg PO BEDTIME [facility] Last Admin: 10/19/23 21:18 Dose: 5 mg Allergies Allergies Allergy/AdvReac Type Severity Reaction Status Date / Time cephalexin [From KEFLEX] Allergy Severe SWELLING Verified 10/13/23 18:30 Sulfa (Sulfonamide Allergy Mild ANGIOEDEMA Verified 10/13/23 18:30 Antibiotics) haldol AdvReac Unknown Unknown Uncoded 10/18/23 17:58 Assessment & Plan Assessment & Plan (1) PTSD (post-traumatic stress disorder): Status: Acute Code(s): F43.10 - Post-traumatic stress disorder, unspecified (2) Bipolar disorder: Status: Acute Code(s): F31.9 - Bipolar disorder, unspecified (3) Polysubstance use disorder: Status: Acute Code(s): F19.90 - Other psychoactive substance use, unspecified, uncomplicated Plan 58 yo female, hx of PTSD, bipolar disorder, ?substance use-cannabis, other use reported with legal hx but not confirmed. Pt sent from the court from a Section 35 on [address] [place]. Pt declines prescribed psychotropic medications at this time, asks for endocrine eval. Today presenting with some hypomania, active PTSD sx. Plan: CV 15 minute checks Collateral contact Diagnostics Family has restraining orders against pt. [place] building and encouragement of appropriate interventions to manage sx. 10/18- Encouarged treatment. 10/19 Patient not willing to consider any form of medication treatment irritable reactive somewhat pressured continue to try to engage in treatment Will most likely need to file Reason for continued inpatient stay Substantial Risk for: inability to function and rapid decompensation Time Spent With Patient Time: Total time managing care of this patient today ____ minutes.
[2023-10-20 16:50] VITALS: BP 141/63; PULSE 89; RESP 16; TEMP 36.8; O2SAT 99
[2023-10-21 08:22] VITALS: BP 120/65; PULSE 97; RESP 16; TEMP 37; O2SAT 98
[2023-10-21] MEDS: NaPROXEN 500 MG TABLET PO ×2 (09:25→20:19)
--- NOTE | 2023-10-21 11:08 | P.PNPSI_ITS ---
Subjective Subjective Date of Service: 10/21/23 Reason For Visit: Depression/SI Subjective Notes: Conditional Voluntary Interim History: Patient was bizarrely delusional thinking that paintings on the belcher of the unit were real and that the patients on the unit were fake in really thieves states that when she takes medications she can feel other people's thoughts more not combative or aggressive bizarre in interaction at time Mental Status Exam Mental Status Exam Narrative: Patient with psychotic preoccupations bizarre in interaction mood labile denies SI or HI Diagnostics Vital Signs (24Hr): Vital Signs - 24 hr 10/20/23 16:50 Temperature 98.2 F Pulse Rate 89 Respiratory Rate 16 Blood Pressure 141/63 H Pulse Oximetry 99 Oxygen Delivery Method Room Air BMI result Body Mass Index 18.0 Labs 10/15/23 13:17 10/15/23 13:17 Medications Medications Current Medications Acetaminophen (Acetaminophen 325 Mg Tablet) 650 mg PO Q6H PRN PRN Reason: Headache/Pain Mild Scale (1-3) Last Admin: 10/20/23 06:03 Dose: 650 mg Al Hydroxide/Mg Hydroxide (Magnesium Hydrox/Alum Hydrox 30 Ml Oral.Susp) 30 ml PO Q6H PRN PRN Reason: Heartburn/Nausea Magnesium Hydroxide (Milk Of Magnesia 30 Ml Oral.Susp) 30 ml PO DAILY PRN PRN Reason: Constipation Naproxen (Naproxen 500 Mg Tablet) 500 mg PO BID [facility] Last Admin: 10/21/23 09:25 Dose: 500 mg Nicotine (Nicotine 21 Mg Patch.Td24) 21 mg TRANSDERMA DAILY PRN PRN Reason: smoking cessation Nicotine Polacrilex (Nicotine Polacrilex 2 Mg Gum) 4 mg BUCCAL Q2H PRN PRN Reason: Nicotine Cravings Last Admin: 10/15/23 21:13 Dose: 4 mg Olanzapine (Olanzapine 5 Mg Tablet) 5 mg PO TID PRN PRN Reason: agitation Olanzapine (Olanzapine 5 Mg Tablet) 5 mg PO BEDTIME [facility] Last Admin: 10/20/23 20:16 Dose: Not Given Allergies Allergies Allergy/AdvReac Type Severity Reaction Status Date / Time cephalexin [From KEFLEX] Allergy Severe SWELLING Verified 10/13/23 18:30 Sulfa (Sulfonamide Allergy Mild ANGIOEDEMA Verified 10/13/23 18:30 Antibiotics) haldol AdvReac Unknown Unknown Uncoded 10/18/23 17:58 Assessment & Plan Assessment & Plan (1) PTSD (post-traumatic stress disorder): Status: Acute Code(s): F43.10 - Post-traumatic stress disorder, unspecified (2) Bipolar disorder: Status: Acute Code(s): F31.9 - Bipolar disorder, unspecified (3) Polysubstance use disorder: Status: Acute Code(s): F19.90 - Other psychoactive substance use, unspecified, uncomplicated Plan 58 yo female, hx of PTSD, bipolar disorder, ?substance use-cannabis, other use reported with legal hx but not confirmed. Pt sent from the court from a Section 35 on [address] [place]. Pt declines prescribed psychotropic medications at this time, asks for endocrine eval. Today presenting with some hypomania, active PTSD sx. Plan: CV 15 minute checks Collateral contact Diagnostics Family has restraining orders against pt. [place] building and encouragement of appropriate interventions to manage sx. 10/18- Encouarged treatment. 10/19 Patient not willing to consider any form of medication treatment irritable reactive somewhat pressured continue to try to engage in treatment Will most likely need to file 10/21/2023 Consideration for commitment and treatment order Reason for continued inpatient stay Substantial Risk for: inability to function and rapid decompensation Time Spent With Patient Time: Total time managing care of this patient today ____ minutes.
[2023-10-21 18:00] VITALS: BP 167/89; PULSE 111; RESP 18; TEMP 36.2; O2SAT 98
[2023-10-21 19:23] VITALS: BP 137/61; PULSE 68; RESP 18; O2SAT 98
--- NOTE | 2023-10-22 04:23 | PC.NURSE ---
Patient had poor sleep last night, up from 2 a.m. on with delusions requesting sweaters and different clothes from her belongings, perseverating about suing the hospital, negative about one staff member in particular thinking she is part of a scheme against her and attempting to staff split. Woke her room-mate up who now wants her belongings and speaking of suing the hospital. Both patients feeding off eachother, both wanting information about Haldol, one patient because she has it ordered, and the other because she has it on her allergy list and states she never took Haldol and thinks its some kind of conspiracy.
[2023-10-22 07:45] VITALS: BP 133/64; PULSE 86; RESP 18; TEMP 36.4; O2SAT 100
[2023-10-22] MEDS: NaPROXEN 500 MG TABLET PO ×2 (07:51→21:08)
--- NOTE | 2023-10-22 16:11 | HO.PSYCHPN ---
Subjective Subjective Date of Service: 10/22/23 Reason For Visit: Depression/SI Subjective Notes: Conditional Voluntary and 3 Day Healthcare Proxy: No Guardianship: No Medical Problems Affecting Mental Status: No Interim History: Discharge 10/23, three day notice to . Pt declines out patient treatment referrals, declines medications. Goal oriented, wanting to look for work and at some point states the [employer] program is helping her to find housing. Plans to stay with her friend who is sober in [place]. Medication Compliance: No Side effects from medications: No Attending Groups: Intermittent Review of Systems Acute medical concerns: No Medical Review of Systems: unchanged Review of Systems Review of Systems Yes all other systems are reviewed and are negative (pt denies) Mental Status Exam Mental Status Exam Patient Appearance: Appropriate Patient Orientation: Person, Place, Time and Situation Level of Consciousness: Alert Patient Behavior: Talkative and Good Eye Contact Mood Description: Apprehensive Affect Description: Apprehensive Patient Cognition Impaired: No Ability to Follow Directions: Good Speech Pattern: Spontaneous Speech Memory Description: Episodic Impaired Hallucinations: None Delusions: Not Present Perceptual Disturbances: Depersonalization and Derealization Thought Process: Intact and Goal Oriented Thought Content: positive for Intact and positive for Goal Oriented Depressive Symptoms: Increased Anxiety and Thoughts of /Suicide ( never ) Abnormal Motor Activity Signs and Symptoms: Restlessness Judgement: Good Diagnostics Vital Signs (24Hr): Vital Signs - 24 hr 10/21/23 18:00 10/21/23 19:23 10/22/23 07:45 Temperature 97.2 F 97.6 F Pulse Rate 111 H 68 86 Respiratory Rate 18 18 18 Blood Pressure 167/89 H 137/61 133/64 Pulse Oximetry 98 98 100 Oxygen Delivery Method Room Air Room Air Room Air BMI result Body Mass Index 18.0 Labs 10/15/23 13:17 10/15/23 13:17 Medications Medications Current Medications Acetaminophen (Acetaminophen 325 Mg Tablet) 650 mg PO Q6H PRN PRN Reason: Headache/Pain Mild Scale (1-3) Last Admin: 10/20/23 06:03 Dose: 650 mg Al Hydroxide/Mg Hydroxide (Magnesium Hydrox/Alum Hydrox 30 Ml Oral.Susp) 30 ml PO Q6H PRN PRN Reason: Heartburn/Nausea Magnesium Hydroxide (Milk Of Magnesia 30 Ml Oral.Susp) 30 ml PO DAILY PRN PRN Reason: Constipation Naproxen (Naproxen 500 Mg Tablet) 500 mg PO BID [facility] Last Admin: 10/22/23 07:51 Dose: 500 mg Nicotine (Nicotine 21 Mg Patch.Td24) 21 mg TRANSDERMA DAILY PRN PRN Reason: smoking cessation Nicotine Polacrilex (Nicotine Polacrilex 2 Mg Gum) 4 mg BUCCAL Q2H PRN PRN Reason: Nicotine Cravings Last Admin: 10/15/23 21:13 Dose: 4 mg Olanzapine (Olanzapine 5 Mg Tablet) 5 mg PO TID PRN PRN Reason: agitation Olanzapine (Olanzapine 5 Mg Tablet) 5 mg PO BEDTIME [facility] Last Admin: 10/22/23 00:04 Dose: Not Given Allergies Allergies Allergy/AdvReac Type Severity Reaction Status Date / Time cephalexin [From KEFLEX] Allergy Severe SWELLING Verified 10/13/23 18:30 Sulfa (Sulfonamide Allergy Mild ANGIOEDEMA Verified 10/13/23 18:30 Antibiotics) haldol AdvReac Unknown Unknown Uncoded 10/18/23 17:58 Assessment & Plan Assessment & Plan (1) PTSD (post-traumatic stress disorder): Status: Acute Code(s): F43.10 - Post-traumatic stress disorder, unspecified (2) Bipolar disorder: Status: Acute Code(s): F31.9 - Bipolar disorder, unspecified (3) Polysubstance use disorder: Status: Acute Code(s): F19.90 - Other psychoactive substance use, unspecified, uncomplicated Plan 58 yo female, hx of PTSD, bipolar disorder, ?substance use-cannabis, other use reported with legal hx but not confirmed. Pt sent from the court from a Section 35 on [address] [place]. Pt declines prescribed psychotropic medications at this time, asks for endocrine eval. Today presenting with some hypomania, active PTSD sx. Plan: CV 15 minute checks Collateral contact Diagnostics Family has restraining orders against pt. [place] building and encouragement of appropriate interventions to manage sx. 10/18- Encouarged treatment. 10/19 Patient not willing to consider any form of medication treatment irritable reactive somewhat pressured continue to try to engage in treatment Will most likely need to file 10/21/2023 Consideration for commitment and treatment order 10/22/23 TDN Pt intact, alert, oriented, goal directed today. Plan for discharge 10/23 on TDN. Patient educated on: therapeutic strategies Informed Consent: understands Reason for continued inpatient stay Substantial Risk for: stable for discharge and rapid decompensation Time Spent With Patient Time: Total time managing care of this patient today ____ minutes.
[2023-10-22 18:00] VITALS: BP 128/59; PULSE 84; TEMP 36.6; O2SAT 98
[2023-10-23] MEDS: NaPROXEN 500 MG TABLET PO (08:22)
[2023-10-23 08:28] VITALS: BP 133/60; PULSE 88; RESP 16; TEMP 36.4; O2SAT 97
--- NOTE | 2023-10-23 14:53 | P.DS_ITS ---
DS: Providers Provider Date of Service: 10/23/23 Date of admission: 10/15/23 15:05 Date of discharge: 10/23/23 Primary care physician: [facility] Admitting clinician: Honey Cruz Attending physician on admission: Jordan Hawkins Attending physician on discharge: Jordan Hawkins Discharging clinician: Honey Cruz DS: Diagnosis Discharge Diagnosis (1) PTSD (post-traumatic stress disorder): Status: Acute (2) Bipolar disorder: Status: Acute (3) Polysubstance use disorder: Status: Inactive DS: Medications Discharge Medications Home Medications: Home Medications Medication Instructions Recorded Confirmed naproxen 500 mg tablet 500 mg PO BID 10/15/23 10/15/23 Mental Status Exam Mental Status Exam Patient Appearance: Appropriate Patient Orientation: Person, Place, Time and Situation Level of Consciousness: Alert Patient Behavior: Talkative and Good Eye Contact Mood Description: Apprehensive Affect Description: Apprehensive Patient Cognition Impaired: No Ability to Follow Directions: Good Speech Pattern: Spontaneous Speech Memory Description: Episodic Impaired Hallucinations: None Delusions: Not Present Perceptual Disturbances: Depersonalization and Derealization Thought Process: Intact and Goal Oriented Thought Content: positive for Intact and positive for Goal Oriented Depressive Symptoms: Increased Anxiety and Thoughts of /Suicide ( never ) Abnormal Motor Activity Signs and Symptoms: Restlessness Judgement: Good DS: Summary Hospital Course Hospital Course: Admission to adult psychiatry for exacerbation of PTSD, Mood Disorder, Cannabis Use Disorder. Pt with a long history of substance use. It was reported that she was in court for a Section 35 hearing which they changed to a Section 12A for assessment for psychiatric admission. Pt with reported sx of psychosis and family with significant concern about current behavior and possible delusional content. Pt declined treatment throughout her admission. She was observed and although labile and angry due to the admission she did not meet commitment criteria. She declined medications. She did accept referral resources however denied appointments. She is aware she may return if needed. She left on a three day notice of intention declining services. Status at Discharge Functional status at discharge: independent ambulation Overall status at discharge: patient is back to baseline Time Spent with Patient Time attestation: Total time managing care of this patient today ____ minutes. Discharge Plan Discharge Anticipated Discharge Date/Time: 10/23/23 12:00 Patient Disposition: Xfer Other Discharge Diagnosis: PTSD Cannabis Use Disorder [facility]: [facility] [Other] - 1 Week (Walk-in any time, seven days a week, to request an assessment to be referred to outpatient services) Center,[facility] [Primary Care Provider] - (PT. is already established at [facility] but hasn't picked a PCP as of yet ) Discharge Medications: Continued naproxen 500 mg tablet 500 mg PO BID Discharge Orders: Discharge Order (Routine); Ordered 10/23/23 Ordered By: Honey Cruz Diet: Advance to usual diet Activity on Discharge: As tolerated Stand Alone Forms: Patient Portal Discharge page, Community Support Care Plan Goals: Mood and Behavioral Stabilization Health Concerns: Mood and Behavioral Stabilization Plan of Treatment: Consider out patient treatment Assessment: Discharge on a three day notice of intent. Pt interviewed prior to discharge and found to be fully oriented and without SI/HI. Pt has insight and demonstrates good judgment in terms of moving forward, wanting to establish work and safe housing. Pt is not in imminent risk of harm to self or others and has a safety plan that includes presenting to the closest ER or calling 911 if feeling unsafe. Pt has been observed closely by nursing and unit staff throughout admission. Pt has not engaged in any behaviors that suggest dangerousness to self or others and has demonstrated appropriate behaviors and impulse control. At this time, pt will accept referral resources she can contact in the future as she deems appropriate. She declines psychotropic medications. Discharge Date/Time: 10/23/23 11:43
== END 2023-10-23 11:43 | disposition other institution (70) | DRG 753 ==
LOC: HO.ED 10-15 13:43 → HO.PM5 10-15 15:50
PROVIDERS: Admitting Provider Psychiatry & Neurology Psychiatry; Emergency Provider Internal Medicine; Visit Provider Clinical Nurse Specialist Psychiatric/Mental Health, Adult
DX: F31.9 Bipolar disorder, unspecified (principal); R45.851 Suicidal ideations; F17.210 Nicotine dependence, cigarettes, uncomplicated; F43.10 Post-traumatic stress disorder, unspecified; Z71.6 Tobacco abuse counseling; Z20.822 Contact with and (suspected) exposure to COVID-19
CPT/HCPCS: 36415; 80053; 80307; 81001; 85025; 87635; 93005; 99285; S9485

== ENCOUNTER → 2023-10-15 10:19 | Outpatient (BNV) | payer MEDICAID, SELFPAY | PROVIDERS: Emergency Provider Internal Medicine; Visit Provider Internal Medicine Cardiovascular Disease | DX: I45.81 Long QT syndrome (principal) | CPT/HCPCS: 93010 ==

== ENCOUNTER → 2023-10-15 15:05 | Outpatient (BNV) | payer OTHER, SELFPAY | PROVIDERS: Admitting Provider Psychiatry & Neurology Psychiatry; Emergency Provider Internal Medicine; Visit Provider Clinical Nurse Specialist Psychiatric/Mental Health, Adult | DX: F31.4 Bipolar disorder, current episode depressed, severe, without psychotic features (principal); F43.11 Post-traumatic stress disorder, acute; F19.90 Other psychoactive substance use, unspecified, uncomplicated | CPT/HCPCS: 99231; 99232 ==

== ENCOUNTER → 2023-10-15 15:05 | Outpatient (BNV) | payer OTHER, SELFPAY | PROVIDERS: Admitting Provider Psychiatry & Neurology Psychiatry; Emergency Provider Internal Medicine; Visit Provider Psychiatry & Neurology Psychiatry | DX: F31.4 Bipolar disorder, current episode depressed, severe, without psychotic features (principal); F43.11 Post-traumatic stress disorder, acute; F19.90 Other psychoactive substance use, unspecified, uncomplicated | CPT/HCPCS: 99231 ==

== ENCOUNTER 2024-06-23 09:44 | Outpatient (REF) | payer MEDICAID, SELFPAY ==
[2024-06-23 11:46] LABS: Estimated Average Glucose 120 mg/dL; Hemoglobin A1c % 5.8 % (<6.0)
[2024-06-26 02:39] LABS: TS Negative Control Passed; TS Panel A 0; TS Panel B 0; TS Positive Control Passed; TSpotTB Negative (Negative)
== END 2024-06-23 09:45 | disposition home or self-care (01) ==
LOC: HO.HHCL 09:44
PROVIDERS: Visit Provider Nurse Practitioner Primary Care
DX: R73.03 Prediabetes (principal); Z02.89 Encounter for other administrative examinations
CPT/HCPCS: 36415; 83036; 86481

== ENCOUNTER → 2024-07-22 11:41 | Outpatient (REF) | payer MEDICAID, SELFPAY ==
--- NOTE | 2024-07-22 11:44 | HM_ITS ---
Conclusion: 1. Patient was monitored for total period of 2 days and 3 hours 2. Baseline was normal sinus rhythm with average heart of 97 beats per minute 3. No significant pauses noted 4. Frequent sinus tachycardia noted with 38% of time heart rate about 100 beats per minute 5. Frequent PVCs noted with total burden of 7% 6. Frequent PACs noted with total burden of 1.6% 7. No patient reported events MTDD
== END ==
LOC: HO.CARD 11:41
PROVIDERS: PCP Nurse Practitioner Primary Care; Visit Provider Nurse Practitioner Primary Care
DX: I49.9 Cardiac arrhythmia, unspecified (principal)
CPT/HCPCS: 93225

== ENCOUNTER → 2024-07-22 11:44 | Outpatient (BNV) | payer MEDICAID, SELFPAY | PROVIDERS: PCP Nurse Practitioner Primary Care; Visit Provider Internal Medicine Cardiovascular Disease | DX: R00.0 Tachycardia, unspecified (principal); I49.3 Ventricular premature depolarization; I49.1 Atrial premature depolarization | CPT/HCPCS: 93227 ==

== ENCOUNTER 2024-12-28 10:51 | Outpatient (REF) | payer MEDICAID, SELFPAY ==
--- NOTE | ~2024-12-28 | XR_ITS ---
EXAMINATION: XR CHEST 2 VIEWS HISTORY: 3 week h/o cough, smoker COMPARISON: Comparison is made with the prior examination dated 10/14/2023. FINDINGS: PA and lateral views of the chest are submitted. The lungs are hyperinflated, consistent with COPD. There is patchy opacity in the right lower lobe, consistent with pneumonia. The left lung is clear. There is no pleural effusion, pneumothorax, or pulmonary vascular congestion. The heart is normal in size. The bones are intact. XR/XR chest 2V IMPRESSION: COPD. Right lower lobe pneumonia. Follow-up is recommended to document resolution. Electronically signed by: Luis Arana MD 12/28/2024 11:34 AM EST
--- OUTSIDE RECORDS SUMMARY | 2024-12-28 12:51 | XMS_ITS | Clinical Summary ---
Author Organization [facility] Address [address] [place] [address] Care Team Providers Care Pocket Builder Name Role Phone Unavailable Primary Care Provider Unavailabl e Allergies No known active allergies Social History Tobacco Use Types Packs/Day Years Used Date Smoking Tobacco: Never Assessed Sex and Gender Information Value Date Recorded Sex Assigned at Female 09/21/2024 10:27 PM EST Gender Identity Female 09/21/2024 10:27 PM EST Sexual Orientation Heterosexual (straight) 09/21 10:27 PM EST Last Filed Vital Signs Vital Sign Reading Time Taken Comments Blood Pressure 150/80 09/21/2024 10:19 PM EST Pulse 80 09/21/2024 10:19 PM EST Temperature 36.2 ??C (97.2 ??F) 09/21/2024 10:[address] Respiratory Rate 18 09/21/2024 10:19 PM EST Oxygen Saturation 99% 09/21/2024 10:19 PM EST Inhaled Oxygen Concentration - - Weight - - Height - - Body Mass Index - - Plan of Treatment Health Maintenance Due Date Last Done Comments Hepatitis C Virus Screening 1966 Pneumococcal Vaccine: Pediat doc (0-5 Years) and At-Risk Patients (6 to 49 Years) (1 of 2 - PCV) 1972 DTaP/Tdap/Td Vaccines (1 - Tdap) 1985 Hepatitis B Vaccines (1 of 3 - 19+ 3-dose series) 1985 Pneumococcal Vaccines 50+ (1 of 2 - PCV) 1985 Pap Smear (Ages 21-65) 1987 Mammogram 2006 Colonoscopy 2011 Zoster (Shingles) Vaccine (1 of 2) 2016 Influenza Vaccine 05/28/2024 08/30/2016 COVID-19 Vaccine ( season) 06/28/202403/2021, 01/03/2021 HIV Screening Completed 10/09/2023
== END 2024-12-28 10:52 | disposition home or self-care (01) ==
LOC: HO.HHCX 10:51
PROVIDERS: Visit Provider Emergency Medicine
DX: R05.2 Subacute cough (principal)
CPT/HCPCS: 71046

== ENCOUNTER → 2024-12-28 10:51 | Outpatient (BNV) | payer MEDICAID, SELFPAY | PROVIDERS: Visit Provider Radiology Diagnostic Radiology | DX: J44.9 Chronic obstructive pulmonary disease, unspecified (principal); J18.9 Pneumonia, unspecified organism | CPT/HCPCS: 71046 ==

== ENCOUNTER 2025-02-10 15:17 | Outpatient (REF) | payer MEDICAID, SELFPAY ==
--- NOTE | ~2025-02-10 | XR_ITS ---
EXAMINATION: XR THORACIC SPINE CLINICAL INFORMATION: back pain sp fall COMPARISON: None available. TECHNIQUE: 3 views of the thoracic spine were obtained. FINDINGS: Levoconvex curvature of the mid thoracic spine. Rudimentary ribs at T12. No acute cortical disruption. No gross malalignment. No lytic or blastic lesions. XR/XR thoracic spine 3V IMPRESSION: No acute fracture or listhesis. Electronically signed by: Jon Marie MD 02/10/2025 03:57 PM EDT
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
--- OUTSIDE RECORDS SUMMARY | 2025-02-10 17:49 | XMS_ITS | Encounter Summary ---
Author Organization [employer] Address [address] [place] [address] Care Team Providers Care Cashier Manager Name Role Phone Fabiola Maria ALISIA Primary Care Provider [phone] Encounter Details Date Type Department Care Team (Latest Contact Info) Description 02/10/2025 Travel Social History Tobacco Use Types Packs/Day Years [...] with others, in a hotel, in a fci, living outside on the street, on a [...] AM EST documented as of this encounter Plan of Treatment Upcoming Encounters Date Type Department Care Team (Late st Contact Info) Description 03/19/2025 9:15 AM EDT Office Visit [facility] [address] [place] [address] Fabiola Maria ANP [address] [place] [address] documented as of this encounter Visit Diagnoses Not on filedocumented in this encounter Additional Health Concerns Assessment Noted Time PHQ-9 Depression Total Score: 24 01/21/ 025 4:45 PM EDT documented as of this encounter Care Teams Cashier Manager Relationship Specialty Start Date End Date Fabiola Maria ANP [address] [place] [address] PCP - General Family Medicine 12/13/23 documented as of this encounter
--- OUTSIDE RECORDS SUMMARY | 2025-02-10 17:50 | XMS_ITS ---
Author Organization [facility] Address [address] [place] [address] Care Team Providers Care Ingot Header Name Role Phone KHAI ROLON N.P. Primary Care Provider Luis Cummings [phone] Encounters Encounter Location Date Provider Diagnosis [facility] [address] [place] [phone] 02/09/2025 Luis Mix Plan Of Treatment No Information Progress Notes * XIOMY GILESDOB:[birth year] (59 yo F)Acc No.[id number]:02/09/2025 Patient:?XIOMY GILES :1965???Age:59 Y???Sex:Female Address:[address], [place], [address] * * Date:?
--- OUTSIDE RECORDS SUMMARY | 2025-02-10 17:50 | XMS_ITS | Encounter Summary ---
Author Organization [employer] Address [address] [facility] 7t [place] [address] Care Team Providers Care Operational Risk Analyst Name Role Phone Fabiola Maria Primary Care Provider [phone] Reason for Visit * Reason Comments Care Coordination C3CM/ANA MARIA Diaz, In Person visit Encounter Details Date Type Department Care Team (Latest Contact Info) Description 02/10/2025 Patient Outreach [facility] MEDICINE [address], [place] [phone] Fabiola Maria ANP [address] [place] [address] Care Coordination (PATEL/ANA MARIA Reyes, In Person visit) Social History Tobacco Use Types Packs/Day Years [...] with others, in a hotel, in a custodial, living outside on the street, on a [...] AM EST documented as of this encounter Progress Notes * Patrick Reyes - 02/10/2025 5:01 PM EDT CHW Patrick Reyes received in person visit from patient. Patient's and address confirmed. Perpatient in need of assistance with custodial only in [facility]. Patient expressed not interested in shelters in [place], [place]. CHW called several places all from which per patient, cannot return to due to having getting kicked out of. CHW was able to connect with [facility] and was able to connect patient with an intake. Patient requested assistance with obtaining her vision, and reading glasses.CHW placed call to [facility] in [place], [place], and per ophthalmology, they do not see an order for patient in their system. CHW provided them with CM Program number to contact CHW if update on patient vision glasses is available. Patient to check in with with CHW tomorrow morning for update and further assistance if needed. Patient verbalized understanding and agrees with plan. documented in this encounter Plan of Treatment Upcoming Encounters Date Type Department Care Team (Late st Contact Info) Description 03/19/2025 9:15 AM EDT Office Visit [facility] MEDICINE [address] [place] [address] Fabiola Maria ANP [address] [place] [address] documented as of this encounter Visit Diagnoses Not on filedocumented in this encounter Additional Health Concerns Assessment Noted Time PHQ-9 Depression Total Score: 24 025 4:45 PM EDT documented as of this encounter Care Teams Operational Risk Analyst Relationship Specialty Start Date End Date Fabiola Maria ANP [address] [place] [address] PCP - General Family Medicine 12/13/23 documented as of this encounter
--- OUTSIDE RECORDS SUMMARY | 2025-02-10 17:50 | XMS_ITS ---
Author Name [facility] Organization Unknown Encounters Encounter Type Encounter Reason Primary Diagnosis Location Date Emergency Pain in left toe(s) [facility] in [facility] Care Team Organization Name Specialty Phone Email Start Date End Da te [employer] 09/24/2024 01/13/2025 [facility]
--- OUTSIDE RECORDS SUMMARY | 2025-02-10 17:50 | XMS_ITS ---
Author Organization [facility] Address [address] [place] [address] Care Team Providers Care Garbage Man Name Role Phone KHAI ROLON N.P. Primary Care Provider Luis Cummings [phone] REASON FOR VISIT Patient presents today for a screening colonoscopy Encounters Encounter Location Date Provider Diagnosis [facility] [address] [place] [phone] 02/09/2025 Luis Mix Plan Of Treatment No Information Progress Notes * XIOMY GILES ANNDOB:[birth year] (59 yo F)Acc No.[id number]:02/09/2025 Progress Notes Patient:?XIOMY GILES UGO Provider:?Lusi Mix MD :1965???Age:59 Y???Sex:Female D ate:02/09/2025 Address[address] [facility] Pcp:KHAI ROLON N.P. Subjective: * Chief Complaints: * ???1. Patient presents today for a screening colonoscopy. * Medical History:? Objective: * Vitals:? Assessment: Plan: * Treatment: * * The named appointment provid er may or may not be the originator of this progress note, and it is not deemed complete until electronically signed by the appointment provider. Sign off status: Pending * Provider:?Luis Mix MD Date:? 025 Generated for Alma Delia robles/Edda/eTtomsmitting on:?02/10/2025 05:50 PM EDT
--- OUTSIDE RECORDS SUMMARY | 2025-02-10 17:50 | XMS_ITS | Clinical Summary ---
Author Organization [facility] Address [address] [place] [address] Care Team Providers Care Jogger Operator Name Role Phone Unavailable Primary Care Provider Unavailabl e Allergies No known active allergies Social History Tobacco Use Types Packs/Day Years Used Date Smoking Tobacco: Never Assessed Comments No Sex and Gender Information Value Date Recorded Sex Assigned at Female 09/21/2024 10:27 PM EST Legal Sex Female 6:53 PM EST Gender Identity Female 09/21/2024 10:27 [...] season) 06/28/202403/2021, 01/03/2021 HIV Screening Completed 10/09/2023 Insurance [employer]
--- OUTSIDE RECORDS SUMMARY | 2025-02-10 17:50 | XMS_ITS | Patient Health Record ---
Author Organization [facility] Address [address] [place] [address] Care Team Providers Care Mixing Tumbler Operator Name Role Phone KHAI ROLON N.P. Primary Care Provider Luis Cummings Unavailable [phone] Reason For Referral Referring Provider First Name KHAI Referring Provider Last Name ОЛЬГА N.PGera Referred Organization [facility] Referred Provider Luis Mix Referred Address [address] [facility],[place], [place],[address], Referred Provider Specialty Gastroentero logy Referral Priority Routine Encounters Encounter Location Date Provider Diagnosis [facility] [address] [place] [address] 02/09/2025 Luis Mix Plan Of Treatment No Information Insurance Providers Payer Name Payer Address Payer Phone Subscriber Number Group Number Insured Name Patient Relationship to Insured Coverage Start Date Coverage End Date [facility] [address] [place] [phone] [id number] XIOMY GILES Self - patient is the insured
--- OUTSIDE RECORDS SUMMARY | 2025-02-10 17:50 | XMS_ITS | Encounter Summary ---
Author Organization [employer] Address [address] [place] [address] Care Team Providers Care Location And Measurement Technician Name Role Phone Fabiola Maria Primary Care Provider [phone] Encounter Details Date Type Department Care Team (Late st Contact Info) Description 05/05/2024 Telephone [facility] [address], [place] [phone] Fabiola Maria ANP [address] [place], [place] [phone] Social History Tobacco Use Types Packs/Day Years Used Date Smoking Tobacco: Every Day Cigarettes Passive Smoke Exposure: Past Smokeless Tobacco: Never Depression Answer Date Recorded Patient Health Questionnaire-9 Score 19 12/13/2023 Patient Health Questionnaire-9 Score 19 12/13/2023 Last PHQ-9: Questionnaire Data Not on file 0 12/13/2023 Housing Stability Answer Date Recorded What is your housing situation today? I do not have housing (Staying with others, in a hotel, in a intermediate, living outside on the street, on a beach, in a car, or in a park 10/24/[address] you li ve. Do you have problems with any of the following? None of the above 10/24/2023 Food Insecurity Answer Date Recorded Within the past 12 months, y ou worried that your food would run out before you got money to buy more: Never True 12/13/2023 Within the past 12 months,th e food you bought just didn't last and you didn't have enough money to get more: Never True Transportation Answer Date Recorded In the past 12 months, has l ack of transportation kept you from medical appts, meetings, work or from getting things needed for daily living? No 12/13/2023 Utilities Answer Date Recorded In the past 12 months, has t he electric, gas, oil or water [employer] threatened to shut off services in your home? No 10/24/2023 Depression Answer Date Recorded Patient Health Questionnaire-2 Score 4 12/13/2023 Comments Unknown Sex and Gender Information Value Date Recorded Sex Assigned at Female 10/02/2023 10:34 AM EST Legal Sex Female 10:31 AM EST Gender Identity Female 10/02/2023 10:34 AM EST Sexual Orientation Straight 10/02/2023 10 :34 AM EST documented as of this encounter Miscellaneous Notes * Telephone Encounter - Arlet Santiago - 05/05/2024 10:17 AM EDT Tc from pt requesting to get TB shot . Please call pt to clarify. documented in this encounter Plan of Treatment Upcoming Encounters Date Type Department Care Team (Late st Contact Info) Description 03/19/2025 9:15 AM EDT Office Visit [facility] [address] [place] [phone] Fabiola Maria ANP [address] [place] [address] documented as of this encounter Visit Diagnoses Not on filedocumented in this encounter Additional Health Concerns Assessment Noted Time PHQ-9 Depression Total Score: 19 024 3:00 PM EST documented as of this encounter Care Teams Location And Measurement Technician Relationship Specialty Start Date End Date Fabiola Maria ANP [address] [place] [address] PCP - General Family Medicine 12/13/23 documented as of this encounter
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
== END 2025-02-10 15:18 | disposition home or self-care (01) ==
LOC: HO.HHCX 15:17
PROVIDERS: Visit Provider Internal Medicine
DX: M54.9 Dorsalgia, unspecified (principal); S99.922A Unspecified injury of left foot, initial encounter
CPT/HCPCS: 72072; 73630

== ENCOUNTER → 2025-02-10 15:18 | Outpatient (BNV) | payer MEDICAID, SELFPAY | PROVIDERS: Visit Provider Radiology Diagnostic Radiology | DX: M54.50 Low back pain, unspecified (principal); W19.XXXA Unspecified fall, initial encounter; M79.672 Pain in left foot | CPT/HCPCS: 72072; 73630 ==

== ENCOUNTER 2025-02-24 10:30 | Outpatient (REF) | payer MEDICAID, SELFPAY ==
[2025-02-24 11:43] LABS: Amphetamine Screen Urine Not Detected (Not Detect); Barbiturates, Urine Not Detected (Not Detect); Benzodiazepines Screen Urine Not Detected (Not Detect); Buprenorphine Scr Not Detected (Not Detect); Cannabinoid Screen Urine POSITIVE (Not Detect); Cocaine Screen Urine Not Detected (Not Detect); Fentanyl, urine Not Detected (Not Detect); Methadone Screen, Urine Not Detected (Not Detect); Opiate Screen Urine Not Detected (Not Detect); Oxycodone Screen Urine Not Detected (Not Detect); Phencyclidine Screen Urine Not Detected (Not Detect)
--- OUTSIDE RECORDS SUMMARY | 2025-02-24 11:52 | XMS_ITS | Encounter Summary ---
Author Organization [employer] Address [address] [place] [address] Care Team Providers Care Vest Busheler Name Role Phone Fabiola Maria Primary Care Provider [phone] Reason for Visit * Reason Comments Cough Sore Throat Encounter Details Date Type Department Care Team (Late st Contact Info) Description 02/23/2025 4:00 PM EDT Office Visit [facility] [address] [place] [address] Urmila Maldonado FNP [address] [place] [address] Other cough (Primary Dx); Feeling unwell; Tobacco dependence; Seasonal allergies Social History Tobacco Use Types Packs/Day [...] with others, in a hotel, in a longterm, living outside on the street, on a [...] Sign Reading Time Taken Comments Blood Pressure 139/83 02/23/2025 3:54 PM EDT Pulse 100 02/23/2025 3:54 PM EDT Temperature 36.7 ??C (98 ??F) 02/23/2025 3:54 PM EDT Respiratory Rate 22 02/23/2025 3:54 PM EDT Oxygen Saturation 95% 02/23/2025 3:54 PM EDT Inhaled Oxygen Concentration - - Weight 43.7 kg (96 lb 6.4 oz) 02/23/2025 3:54 PM EDT Height - - Body Mass Index 17.08 07/08/2024 2:12 PM EDT documented in this encounter Progress Notes * Urmila Maldonado, AIDAN - 02/23/2025 4:00 PM EDT Subjective: Crystal Harper is a 59 y.o. female w/ PMH ROMEO, PTSD, and prediabetes who presents to the office for a sick visit. HPI Primary concern today is acute cough x 2-3 weeks. History of tobacco use, smoking approximately 10 cigarettes/day since the age of [age] years old (44 years). Previous order for LDCT noted in chart, although patient denies previous lung cancer screening. Form signed today, to be faxed to [facility]. She reports that over the past few weeks has had an increase in cough frequency and green-yellow sputum. Coughing throughout morning and night. Denies any fever, chills, nausea, vomiting, diarrhea. Does report that she has been more fatigued the past few days, sleeping later than usual. She is unhoused and would like to check Utox screening as well as kidney and liver function. Orders placed. Established with CM team. Declines interest in shelters. Has been couch surfing. Review of Systems Constitutional: Positive for fatigue. Negative for chills and fever. HENT: Negative for congestion. Respiratory: Positive for cough. Negative for shortness of breath and wheezing. Gastrointestinal: Negative for diarrhea, nausea and vomiting. Skin: Negative for rash. Neurological: Negative for dizziness. Visit Vitals BP 139/83 (BP Location: Left arm, Patient Position: Sitting, BP Cuff Size: Adult) Pulse 100 Temp 98 ??F (36.7 ??C) (Oral) Resp 22 Wt 96 lb 6.4 oz (43.7 kg) SpO2 95% BMI 17.08 kg/m?? Smoking Status Every Day BSA 1.39 m?? Physical Exam Constitutional: Appearance: Normal appearance. HENT: Head: Atraumatic. Right Ear: External ear normal. Left Ear: External ear normal. Cardiovascular: Rate and Rhythm: Normal rate and regular rhythm. Pulmonary: Effort: Pulmonary effort is normal. Breath sounds: Normal breath sounds. No wheezing or rhonchi. Neurological: Mental Status: She is alert and oriented to person, place, and time. Psychiatric: Mood and Affect: Mood normal. Behavior: Behavior normal. Problem List Items Addressed This Visit Other Tobacco dependence Overview -Cigg/day: 10 -Age started: 16 y/o -Total years smokin years -Pack year history: > 20 Encouraged smoking cessation resources such as pharmacomtherapy, [facility] smoking cessation group, and [facility] pharmacy smoking cessation clinic -Referred to [facility] LDCT for lung CA screening 02/23/25 ([facility]) Other Visit Diagnoses Other cough - Primary - Rapid flu, covid, and strep negative - DDX: 2/2 tobacco use, allergies, URI, bronchitis, other - Smoking cessation strongly encouraged, LDCT ordered - Pt requesting abx - LCTA on exam. However, given symptom duration and SDOH risk factors, shared decision making to proceed with course of azithromycin. F/up precautions reviewed Relevant Medications azithromycin (Zithromax Z-Augusto) 250 MG tablet Other Relevant Orders POCT Rapid COVID Ag (Completed) POCT rapid strep A manually resulted (Completed) Influenza A (ID NOW Rapid Molecular) (Completed) Influenza B (ID NOW Rapid Molecular) (Completed) Feeling unwell Relevant Orders Drug Monitoring, Panel 1, Screen, Urine Comprehensive Metabolic Panel Seasonal allergies Relevant Medications loratadine (Claritin) 10 MG tablet Follow up: routine care with PCP, sooner as needed documented in this encounter Plan of Treatment Upcoming Encounters Date Type Department Care Team (Late st Contact Info) Description 03/19/2025 9:15 AM EDT Office Visit [facility] [address], [place] [phone] Fabiola Maria ANP [address] [place], [place] [phone] Scheduled Orders Name Type Priority Associated Diagnoses Orde r Schedule Comprehensive Metabolic Panel Lab Routine Feeling unwell Expected: 02/23/2025 (Approximate), Expires: 02/23/2026 documented as of this encounter Procedures Procedure Name Priority Date/Time Associated Diagnosis Comments DRUG MONITOR, PANEL 1, SCREEN, URINE Routine 02/24/2025 10:31 AM EDT Feeling unwell POCT INFLUENZA B (ID NOW RAPID MOLECULAR) Routine 02/23/2025 4:16 PM EDT Other cough POCT INFLUENZA A (ID NOW RAPID MOLECULAR) Routine 02/23/2025 4:16 PM EDT Other cough POCT RAPID COVID ANTIGEN Routine 02/23/2025 4:16 PM EDT Other cough POCT RAPID STREP A Routine 02/23/2025 4: 16 PM EDT Other cough documented in this encounter Results * (ABNORMAL) Drug Monitoring, Panel 1, Screen, Urine (02/24/2025 10:31 AM EDT) Opiate Screen Urine Not Detected Not Detect [facility] Comment:Opiate cut-off is 30 0 ng/mL.Positive results are unconfirmed and should not be used fornon-medical purposes. Barbiturates, Urine Not Detected Not Detect [facility] Comment:Barbiturate cut-off is 200 ng/mL.Positive results are unconfirmed and should not be used fornon-medical purposes. Phencyclidine Screen Urine Not Detected Not Detect [facility] Comment:Phencyclidine cut-of f is 25 ng/mL.Positive results are unconfirmed and should not be used fornon-medical purposes. Amphetamine Screen Urine Not Detected Not Detect [facility] Comment:Amphetamine cut-off is 1000 ng/mL.Positive results are unconfirmed and should not be used fornon-medical purposes. Benzodiazepines Screen Urine Not Detected Not Detect [facility] Comment:Benzodiazepine cut-o ff is 200 ng/mL.Positive results are unconfirmed and should not be used fornon-medical purposes. Cocaine Screen Urine Not Detected Not Detect [facility] Comment:Cocaine cut-off is 3 00 ng/mL.Positive results are unconfirmed and should not be used fornon-medical purposes. Cannabinoid Screen Urine POSITIVE(A) Not Detect [facility] Comment:Cannabinoid cut-off is 50 ng/mL.Positive results are unconfirmed and should not be used fornon-medical purposes. Methadone Screen, Urine Not Detected Not Detect ng/mL [facility] Comment:Methadone cut-off is 300 ng/mL.Positive results are unconfirmed and should not be used fornon-medical purposes. FENTANYL URINE Not Detected Not Detect [facility] Comment:Fentanyl cut-off is 1 ng/mL.Positive results are unconfirmed and should not be used fornon-medical purposes. Oxycodone Urine Screen Not Detected Not Detect ng/mL [facility] Comment:Oxycodone cut-off is 100 ng/mL.Positive results are unconfirmed and should not be used fornon-medical purposes. Buprenorphine Screen Not Detected Not Detect ng/mL [facility] Comment:Buprenorphine cut-of f is 5 ng/mL.Positive results are unconfirmed and should not be used fornon-medical purposes. Urine (Urine, Random) 02/24/2025 10:31 AM EDT 02/24/2025 11:16 AM EDT us Urmila Maldonado [employer] [facility] URINE ORDERABLES Final Res ult Performing Organization Address [facility]/ZIP Co de Phone Number [facility] [address] [place] [phone] * Influenza B (ID NOW Rapid Molecular) (02/23/2025 4:16 PM EDT) Influenza B Negative Negative, Indeterminate [facility] Swab 02/23/2025 4:16 PM EDT us Urmila Maldonado [employer] POINT OF CARE TEST ENTER/EDIT ORDERABLES Final Result Performing Organization Address [facility] de Phone Number [facility] [address] [place] [phone] * Influenza A (ID NOW Rapid Molecular) (02/23/2025 4:16 PM EDT) [facility] Influenza A Negative Negative, Indeterminate [facility] Swab 02/23/2025 4:16 PM EDT us Urmila Maldonado [employer] POINT OF CARE TEST ENTER/EDIT ORDERABLES Final Result Performing Organization Address [facility] Co de Phone Number [facility] [address] [place] [phone] * POCT rapid strep A manually resulted (02/23/2025 4:16 PM EDT) Pathologist [facility] Rapid Strep A Screen Negative Negative, None Detected [facility] Swab 02/23/2025 4:16 PM EDT us Urmila Maldonado [employer] POINT OF CARE TEST ENTER/EDIT ORDERABLES Final Result Performing Organization Address [facility] Co de Phone Number [facility] [address] [place] [phone] * POCT Rapid COVID Ag (02/23/2025 4:16 PM EDT) Rapid COVID Ag Negative [facility] Swab 02/23/2025 4:16 PM EDT us Urmila Maldonado [employer] POINT OF CARE TEST ENTER/EDIT ORDERABLES Final Result Performing Organization Address City/State/[facility] Co de Phone Number [facility] [address] [place] [phone] documented in this encounter Visit Diagnoses Diagnosis Other cough- Primary Feeling unwell Other ill-defined conditions Tobacco dependence Tobacco use disorder Seasonal allergies Allergic rhinitis, cause unspecified documented in this encounter Additional Health Concerns Assessment Noted Time PHQ-9 Depression Total Score: 24 025 4:45 PM EDT documented as of this encounter Care Teams Vest Busheler Relationship Specialty Start Date End Date Fabiola Maria ANP [address] [place] [phone] PCP - General Family Medicine 12/13/23 documented as of this encounter
--- OUTSIDE RECORDS SUMMARY | 2025-02-24 11:52 | XMS_ITS | Clinical Summary ---
Author Organization [facility] Address [address] [place] [address] Care Team Providers Care Applications Support Analyst Name Role Phone Unavailable Primary Care Provider [...] Done Comments Hepatitis C Virus Screening 1966 DTaP/Tdap/Td Vaccines (1 - Tdap) 1985 Hepatitis B Vaccines (1 of 3 - 19+ 3-dose series) 1985 Pneumococcal Vaccines 50+ (1 of 2 - PCV) 1985 Pap Smear (Ages 21-65) 1987 Mammogram 2006 Colonoscopy 2011 Zoster (Shingles) Vaccine (1 of 2) 2016 Influenza Vaccine 05/28/2024 08/30/2016 COVID-19 Vaccine ( season) 06/28/202403/2021, 01/03/2021 HIV Screening Completed 10/09/2023 Insurance [facility]
--- OUTSIDE RECORDS SUMMARY | 2025-02-24 11:53 | XMS_ITS | Clinical Summary ---
Author Organization [employer] Address [address] [facility] [address] [place] [address] Care Team Providers Care Composition Worker Name Role Phone Crow Fabiola CRUMP Primary Care Provider [phone] Allergies Active Allergy Reactions Criticality Noted Date [...] needed (asthma). 1 each 12/29/19 25 Active Blood Pressure kit 1 each 2 times daily. 1 kit 12/30/19 25 026 Active ibuprofen 400 MG tablet 1-2 tablets PO TID prn pain, hold for GI intolerance 60 tablet 04/16/20 25 Active Diclofenac Sodium 1 % gel Apply 1 inch topically if needed in the morning and at bedtime (pain). 60 g 02/11/20 25 025 Active azithromycin (Zithromax Z-Augusto) 250 MG tabletIndicati ons:Other cough Take 2 tablets once on day 1, then 1 tablet 1x/day for 4 days. 6 tablet 02/24/20 25 Active loratadine (Claritin) 10 MG tabletIndicati ons:Seasonal allergies Take 1 tablet (10 mg) by mouth if needed each day for allergies. 90 tablet 1 02/24/20 25 026 Active ibuprofen 400 MG tablet Take 1 tablet (400 mg) by mouth every 6 (six) hours if needed for moderate pain or fever for up to 30 doses. 30 tablet 12/29/19 25 025 Discontinued(R eorder (will not trigger notification to Pharmacy)) azithromycin (Zithromax Z-Augusto) 250 MG tablet Take 2 tablets once on day 1, then 1 tablet 1x/day for 4 days. 6 tablet 12/29/19 25 025 Discontinued(R eorder (will [...] her emotions and concerns. Provided information for [facility] programs for sooner appointments. Crystal has a Bread Jockey with [facility] who is supporting with housing resources and applications. clinician will provide additional support during next medical appointment. Numbness in both hands 07/08/2024 Numbness in feet 07/08/2024 Tobacco dependence 10/09/2023 Overview (02/23/2025): -Cigg/day: 10 -Age started: 16 y/o -Total years smokin years -Pack year history: > 20 Encouraged smoking cessation resources such as pharmacomtherapy, [facility] smoking cessation group, and [facility] pharmacy smoking cessation clinic -Referred to [facility] for lung CA screening 02/23/25 ([facility] Prediabetes 10/09/2023 Adjustment disorder 10/02/2023 Homelessness 10/02/2023 Assessment & Plan (02/10/2025 3:08 PM EDT): Currently couch surfing, will follow-up with care management, patient declines to go to a detention, she has the least of the shelters [...] her emotions and concerns. Provided information for CB programs for sooner appointments. Crystal has a Bread Jockey with [facility] who is supporting with housing resources and [...] organization. Date Type Department Care Team Description 02/23/2025 4:00 PM EDT Office Visit [facility] [address] [place] [phone] Urmila Maldonado FNP Other cough (Primary Dx); Feeling unwell; Tobacco dependence; Seasonal allergies 02/16/2025 Patient Outreach [facility] [address] [place] [address] Fabiola Maria, ALISIA Care Coordination ([facility]/CHW Patrick Reyes, In person meet-Insurance assistance) 02/12/2025 Patient Outreach [address] [address] Fabiola Maria ANP Care Coordination ([facility]/Jillian Reyes, In person visit) 02/10/2025 2:20 PM EDT [facility] [address] [address] Deyanira Narayan MD Toe trauma, left, initial encounter (Primary Dx); Mid back pain; Homelessness 02/10/2025 Patient Outreach [address] [address] Fabiola Maria ANP Care Coordination ([facility]/ANA MARIA Reyes, In Person visit) 02/10/2025 Travel 02/01/2025 Patient Outreach [address] [address] Fabiola Maria ANP Care Coordination ([facility]/ANA MARIA Reyes TC#3-Follow up-LVM) 01/21/2025 Patient Outreach [address] [address] Alan Isaacs [facility] Recovery Supports 01/18/2025 Patient Outreach [address] [address] Fabiola Maria ANP Care Coordination ([facility]/Jillian Reyes TC#2- SDOH follow up-LVM) 01/08/2025 Population Health Risk Score [facility] (C3) Department [address] [place] [phone] Provider, Population Health Generic 12/29/2024 Orders Only [facility] [address] [address] Oni Wood MD 12/28/2024 10:20 AM EST [facility] [address] [address] Oni Wood MD Elevated blood pressure reading in office without diagnosis of hypertension (Primary Dx); Subacute cough; Hernia of abdominal wall; Homelessness; Dyspnea, unspecified type 12/28/2024 Patient Outreach [address] [address] Fabiola Maria ANP Care Coordination ([facility]/CH[facility] Patrick Reyes, In person visit at [facility]) 12/24/2024 Telephone [facility] [address] [place] [address] Fabiola Maria ANP Referral 12/21/2024 Patient Outreach [facility] [address] [place] [address] Fabiola Maria ANP Transition Of Care (Tcm) [...] with others, in a hotel, in a detention, living outside on the street, on a [...] 6.4 oz) 02/23/2025 3:54 PM EDT Height 160 cm (5' 3 ) 07/08/2024 2:12 PM EDT Body Mass Index 17.08 07/08/2024 2:12 PM EDT Plan of Treatment Upcoming Encounters Date Type Department Care Team (Late st Contact Info) Description 03/19/2025 9:15 AM EDT Office Visit [facility] [address] [place] [address] Fabiola Maria ANP [address] [place] [address] Health Maintenance Due Date Last Done Comments [...] 08/30/2016 Diabetes: Hemoglobin A1C 06/23/2025 024, 10/09/2023 SDOH Screening 12/28/2025 12/28/2024 Tobacco Screening 12/28/2025 [...] 02/23/2025 4: 16 PM EDT Other cough POCT RAPID COVID ANTIGEN Routine 02/23/2025 4:16 PM EDT Other cough XR THORACIC SPINE 3 VIEWS Routine 02/10/2025 [...] Recently Relevant to Health Maintenance Results * (ABNORMAL) Drug Monitoring, Panel 1, Screen, Urine (02/24/2025 10:31 AM EDT) Pathologist [facility] Opiate Screen Urine Not Detected Not Detect [facility] Comment:Opiate cut-off is 30 0 ng/mL.Positive results are unconfirmed and should not be used fornon-medical purposes. Barbiturates, Urine Not Detected Not Detect [facility] Comment:Barbiturate cut-off is 200 ng/mL.Positive results are unconfirmed and should not be used fornon-medical purposes. Phencyclidine Screen Urine Not Detected Not Detect [facility] Comment:Phencyclidine cut-of f is 25 ng/mL.Positive results are unconfirmed and should not be used fornon-medical purposes. Amphetamine Screen Urine Not Detected Not Detect [facility] Comment:Amphetamine cut-off is 1000 ng/mL.Positive results are unconfirmed and should not be used fornon-medical purposes. Benzodiazepines Screen Urine Not Detected Not Detect [facility] Comment:Benzodiazepine cut-o ff is 200 ng/mL.Positive results are unconfirmed and should not be used fornon-medical purposes. Cocaine Screen Urine Not Detected Not Detect [facility] Comment:Cocaine cut-off is 3 00 ng/mL.Positive results are unconfirmed and should not be used fornon-medical purposes. Cannabinoid Screen Urine POSITIVE(A) Not Detect [facility] Comment:Cannabinoid cut-off is 50 ng/mL.Positive results are unconfirmed and should not be used fornon-medical purposes. Methadone Screen, Urine Not Detected Not Detect ng/mL [facility] Comment:Methadone cut-off is 300 ng/mL.Positive results are unconfirmed and should not be used fornon-medical purposes. FENTANYL URINE Not Detected Not Detect [facility] Comment:Fentanyl cut-off is 1 ng/mL.Positive results are unconfirmed and should not be used fornon-medical purposes. Oxycodone Urine Screen Not Detected Not Detect ng/mL [facility] Comment:Oxycodone cut-off is 100 ng/mL.Positive results are unconfirmed and should not be used fornon-medical purposes. Buprenorphine Screen Not Detected Not Detect ng/mL [facility] Comment:Buprenorphine cut-of f is 5 ng/mL.Positive results are unconfirmed and should not be used fornon-medical purposes. Urine (Urine, Random) 02/24/2025 10:31 AM EDT 02/24/2025 11:16 AM EDT us Urmila Maldonado FIELD INSTRUCTOR LAB URINE ORDERABLES Final Res ult Performing Organization Address [facility] Co de Phone Number [facility] [address] [place] [phone] * Influenza B (ID NOW Rapid Molecular) (02/23/2025 4:16 PM EDT) Only the most recent of2 resultswithin the time period is included. Influenza B Negative Negative, Indeterminate [facility] Swab 02/23/2025 4:16 PM EDT us Urmila Maldonado FIELD INSTRUCTOR POINT OF CARE TEST ENTER/EDIT ORDERABLES Final Result Performing Organization Address [facility] Co de Phone Number [facility] [address] [place] [phone] * Influenza A (ID NOW Rapid Molecular) (02/23/2025 4:16 PM EDT) Only the most recent of2 resultswithin the time period is included. Influenza A Negative Negative, Indeterminate [facility] Swab 02/23/2025 4:16 PM EDT us Urmila Maldonado FIELD INSTRUCTOR POINT OF CARE TEST ENTER/EDIT ORDERABLES Final Result Performing Organization Address [facility] Co de Phone Number [facility] [address] [place] [phone] * POCT Rapid COVID Ag (02/23/2025 4:16 PM EDT) Only the most recent of2 resultswithin the time period is included. Rapid COVID Ag Negative [facility] Swab 02/23/2025 4:16 PM EDT us Urmila Maldonado FIELD INSTRUCTOR POINT OF CARE TEST ENTER/EDIT ORDERABLES Final Result Performing Organization Address [facility] de Phone Number [facility] [address] [place] [phone] * POCT rapid strep A manually resulted (02/23/2025 4:16 PM EDT) Only the most recent of2 resultswithin the time period is included. Rapid Strep A Screen Negative Negative, None Detected [facility] Swab 02/23/2025 4:16 PM EDT us Urmila Maldonado FIELD INSTRUCTOR POINT OF CARE TEST ENTER/EDIT ORDERABLES Final Result Performing Organization Address [facility] de Phone Number [facility] [address] [place] [phone] * XR Foot 3+ Views Left (02/10/2025 3:18 PM EDT) Anatomical Region Laterality Modality Lower Extremities, Foot Left Radiogra phic Imaging 02/10/2025 3:18 PM EDT Narrative 02/10/2025 3:55 PM EDT ?[facility] ?[address] ?[place] [address] ?XRay Report ? Signed ? Patient: Harper,Crystal ?MR#: [id number] ? : 1965 ?Acct:[id number] ? Age/Sex: 59 / F ?ADM Date: 02/10/25 ? Loc: HO.HHCX ? Attending Dr: Deyanira Narayan MD ? Ordering Physician: Deyanira Narayan MD ?? Date of Service: 02/10/25 ?? Procedure(s): XR foot LT min 3V ?? Accession Number(s): [id number] ? cc: Deyanira Narayan MD ? EXAMINATION: [...] DD/ 1518 ? TD/TT: 02/10/25 1541 ? Gray Mixing Operator: ? Procedure Note Donjaneter, Image - 02/10/[address] [address] XRay Report Signed Patient: Pamela Harper#: [id number] : 1965Acct:[id number] Age/Sex: 59 / FADM Date: 02/10/25 [facility] Attending Dr: Deyanira Narayan MD Ordering Physician: Deyanira Narayan MD Date of Service: 02/10/25 Procedure(s): XR foot LT min 3V Accession Number(s): [id number] cc: Deyanira Narayan MD EXAMINATION: XR FOOT [...] Luis Arana MD 02/10/2025 03:52 PM EDT Dictated By: Luis Arana MD Signed By: <Electronically signed by Luis Arana MD in OV> 02/10/25 1552 DD/ 1518 TD/TT: 02/10/25 1541 Gray Mixing Operator: Deyanira Narayan MD IMG XR PROCEDURES Final Result * XR Thoracic Spine 3 Views (02/10/2025 3:18 PM EDT) Anatomical Region Laterality Modality Spine, T-spine Radiographic Alycia ging 02/10/2025 3:18 PM EDT Narrative 02/10/2025 4:00 PM EDT ?[facility] ?[address] ?[place] [address] ?XRay Report ? Signed ? Patient: Harper,Crystal ?MR#: [id number] ? : 1965 ?Acct:[id number] ? Age/Sex: 59 / F ?ADM Date: 02/10/25 ? Loc: HO.HHCX ? Attending Dr: Deyanira Narayan MD ? Ordering Physician: Deyanira Narayan MD ?? Date of Service: 02/10/25 ?? Procedure(s): XR thoracic spine 3V ?? Accession Number(s): [id number] ? cc: Deyanira Narayan MD ? EXAMINATION: [...] Marie MD ??02/10/2025 03:57 PM ?? EDT ? Dictated By: ?Jon Antoine MD ? Signed By: ?<Electronically signed by Jon Buchanan MD in OV> ? 02/10/25 1557 ? DD/ 1518 ? TD/TT: 02/10/25 1541 ? Gray Mixing Operator: ? Procedure Note Dianne Brock - 02/10/2025 [facility] [address] [facility] [place] [address] XRay Report Signed Patient: Tootie HarperAdam#: [id number] : 1965Acct:[id number] Age/Sex: 59 / FADM Date: 02/10/25 Loc: HO.HHCX Attending Dr: Deyanira Narayan MD Ordering Physician: Deyanira Narayan MD Date of Service: 02/10/25 Procedure(s): XR thoracic spine 3V Accession Number(s): [id number] cc: Deyanira Narayan MD EXAMINATION: XR THORACIC [...] 02/10/25 1557 DD/ 1518 TD/TT: 02/10/25 1541 Gray Mixing Operator: Deyanira Narayan MD IMG XR PROCEDURES Final Result * XR Chest 2 Views (12/28/2024 10:51 AM EST) Anatomical Region Laterality Modality Chest Radiographic Alycia ging 12/28/2024 10:5 1 AM EST Narrative 12/28/2024 11:36 AM EST ?[facility] ?[address] ?[place] [address] ?XRay Report ? Signed ? Patient: Harper,Crystal ?MR#: [id number] ? : 1965 ?Acct:[id number] ? Age/Sex: 59 / F ?ADM Date: 03/03/25 ? Loc: HO.HHCX ? Attending Dr: Oni Wood MD ? Ordering Physician: ONI WOOD MD ?? Date of Service: 12/28/24 ?? Procedure(s): XR chest 2V ?? Accession Number(s): [id number] ? cc: ONI WOOD MD ? EXAMINATION: [...] ?? resolution. ? Electronically signed by: ??Luis Aarna MD ??12/28/2024 11:34 AM EST ? Dictated By: ?Luis Arana MD ? Signed By: ?<Electronically signed by Luis Arana MD in OV> ?12/28/24 1134 ? DD/ 1051 ? TD/TT: 12/28/24 1129 ? Gray Mixing Operator: ? Procedure Note Vinod, Dianne - 12/28/[address] [address] XRay Report Signed Patient: Pamela Harper#: [id number] : 1965Acct:[id number] Age/Sex: 59 / FADM Date: 12/28/24 Loc: HO.HHCX Attending Dr: Oni Wood MD Ordering Physician: ONI WOOD MD Date of Service: 12/28/24 Procedure(s): XR chest 2V Accession Number(s): [id number] cc: ONI WOOD MD EXAMINATION: XR CHEST [...] 12/28/24 1134 DD/ 1051 TD/TT: 12/28/24 1129 Gray Mixing Operator: Oni Wood MD IMG XR PROCEDURES Final Result * Referral to Neurology (12/28/2024) Fabiola Maria ANP OUTPATIENT REFERRAL ORDERABLES F inal Result * Hemoglobin A1c (06/23/2024 8:46 AM EDT) Hemoglobin A1c 5.8 <6.0 % [facility] Comment:Hemoglobin A1C Refer ence Range Adults: 4.8 - 6.0 % Non diabetic: < 6.0 % Goal: < 7.0 %Additional Action Suggested: > 8.0 %Note: Hemoglobin A1c results are invalid for patients with abnormal amounts of HbF. Blood transfusions may impact the HbA1c concentration in the patient sample. Estimated Average Glucose 120 mg/dL [facility] Comment:eAG = Estimated ave rage glucose which is %A1C expressed asaverage glucose, using the formula of the M9Q-PejjapdNsjodgc Glucose study (ADAG), Diabetes Care, Vol.31,#8,May. 2007 06/23/2024 8:46 AM EDT 06/23/2024 11:22 AM EDT us Fabiola Maria ANP LAB BLOOD ORDERABLES Final Resul t [facility] [address] [place] [phone] * Hepatitis C Antibody with Reflex to HCV, RNA, Quantitative, Real-Time PCR (10/09/2023 9:42 AM EST) Hepatitis C Antibody Nonreactive Nonreactive [facility] Comment:Antibodies to HCV no t detected; does not exclude early acuteHCV infection. Blood Venous blood specimen / Unknown 10/09/2023 9:42 AM EST 10/09/2023 11:24 AM EST Oni Wood MD LAB BLOOD ORDERABLES Final Resul t Performing Organization Address [facility] Co de Phone Number [facility] [address] [place] [phone] * HIV-1/2 Antigen and Antibodies, Fourth Generation, with Reflexes (10/09/2023 9:42 AM EST) HIV AB/AG Nonreactive Nonreactive [facility] Comment:HIV-1 p24 Ag and/or HIV-1/HIV-2 Ab not detected.A test result that is nonreactive does not exclude thepossibility of exposure to or infection with HIV-1 and/orHIV-2. Nonreactive results in this assay for individualswith prior exposure to HIV-1 and/or HIV-2 may be due toantigen and antibody levels that are below the limit ofdetection of this assay.The [employer] HIV Ag/Ab Combo assay result andsupplemental assay results should be interpreted inconjunction with the patient's clinical presentation,history and other laboratory results. If the results areinconsistent with clinical evidence, additional testing issuggested to confirm the result. Blood Venous blood specimen / Unknown 10/09/2023 9:42 AM EST 10/09/2023 11:24 AM EST Oni Wood MD LAB BLOOD ORDERABLES Final Resul t Performing Organization Address [facility] Co de Phone Number [facility] [address] [place] [phone] from Last 3 Months or Most Recently Relevant to Health Maintenance Insurance [facility] C3 HSN FULL Care Teams Composition Worker Relationship Specialty Start Date End Date Fabiola Maria ANP [address] [place] [address] PCP - General Family Medicine 12/13/23
--- OUTSIDE RECORDS SUMMARY | 2025-02-24 11:53 | XMS_ITS | Encounter Summary ---
Author Organization [employer] Address [address] [place] [address] Care Team Providers Care Practicing Dermatologist Name Role Phone Fabiola Maria Primary Care Provider [phone] Encounter Details Date Type Department Care Team (Late st Contact Info) Description 05/05/2024 Telephone [facility] [address] [place], [place] [phone] Fabiola Maria ANP [address] [place], [place] [phone] Social History Tobacco Use Types Packs/Day Years [...] with others, in a hotel, in a fdc, living outside on the street, on a [...] t he electric, gas, oil or water [employer] [facility] threatened to shut off services in your [...] Description 03/19/2025 9:15 AM EDT Office Visit [facility] [address] [place] [address] Fabiola Maria ANP [address] [place] [address] documented as of this encounter Visit Diagnoses Not on filedocumented in this encounter Additional Health Concerns Assessment Noted Time PHQ-9 Depression Total Score: 19 024 3:00 PM EST documented as of this encounter Care Teams Practicing Dermatologist Relationship Specialty Start Date End Date Fabiola Maria ANP [address] [place] [address] PCP - General Family Medicine 12/13/23 documented as of this encounter
[2025-02-24 12:08] LABS: Alanine Aminotransferase 28 U/L (0-31); Albumin Level 3.9 g/dL (3.5-5.0); Alkaline Phosphatase 84 U/L (39-117); Anion Gap 11 (12-20); Aspartate Amino Transferase 32 U/L (5-31); Bilirubin Total 0.3 mg/dL (0.0-1.0); Blood Urea Nitrogen 17 mg/dL (9-16); Calcium 9.4 mg/dL (8.4-10.2); Carbon Dioxide 29 mmol/L (22-29); Chloride 103 mmol/L (96-108); Estimated Glomerular Filt Rate > 60; Glucose Random 113 mg/dL (60-115); Potassium 4.2 mmol/L (3.3-5.1); Sodium 139 mmol/L (135-145); Total Protein 6.9 g/dL (6.5-8.0)
== END 2025-02-24 10:31 | disposition home or self-care (01) ==
LOC: HO.HHCL 10:30
PROVIDERS: Visit Provider Registered Nurse
DX: R68.89 Other general symptoms and signs (principal)
CPT/HCPCS: 80053; 80307

== ENCOUNTER 2025-03-19 16:46 | Outpatient (REF) | payer MEDICAID, SELFPAY ==
--- OUTSIDE RECORDS SUMMARY | 2025-03-19 16:49 | XMS_ITS | Patient Health Record ---
Author Organization [facility] Address [address] [place] [address] Care Team Providers Care Corporate Affairs Manager Name Role Phone KHAI ROLON N.P. Primary Care Provider Luis Cummings Unavailable [phone] Reason For Referral Referring Provider First Name KHAI Referring Provider Last Name ОЛЬГА N.PGera Referred Organization [facility] Referred Provider Luis Mix Referred Address [address] [facility],[place],[address], Referred Provider Specialty Gastroentero logy Referral Priority Routine Encounters Encounter Location Date Provider Diagnosis [facility] [address] [place] [address] 02/09/2025 Luis Mix Plan Of Treatment No Information Insurance Providers Payer Name Payer Address Payer Phone Subscriber Number Group Number Insured Name Patient Relationship to Insured Coverage Start Date Coverage End Date MEDICAID OF [facility] [address] [place] [phone] [id number] GILES Self - patient is the insured
[2025-03-19 18:40] LABS: CT PCR NOT DETECTED (Not Detect.); NG PCR NOT DETECTED (Not Detect.)
[2025-03-23 09:38] LABS: C. Trachomatis RNA TMA, Throat NOT DETECTED; N. gonorrhoeae RNA TMA, Throat NOT DETECTED
[2025-03-23 10:19] LABS: C.Trachomatis RNA TMA, Rectal NOT DETECTED; N.Gonorrhoeae RNA TMA, Rectal NOT DETECTED
== END 2025-03-19 16:47 | disposition home or self-care (01) ==
LOC: HO.HHCLNP 16:46
PROVIDERS: Visit Provider Nurse Practitioner Primary Care
DX: Z11.3 Encounter for screening for infections with a predominantly sexual mode of transmission (principal)
CPT/HCPCS: 87491; 87591